=== PATIENT | female | born 1960 | race Caucasian/White ===

== ENCOUNTER 2020-11-20 08:05 | Inpatient (IN) ==
[2020-11-20 10:35] LABS: Bacteria,Urine Occasional /HPF (Few); Bilirubin,Urine Negative (Negative); Blood, Urine Negative (Negative); Glucose,Urine (UA) Negative (Negative); Ketones,Urine Negative (Negative); Mucus,Urine Occasional /LPF (Occasional); Nitrite,Urine Negative (Negative); Protein,Urine 30 MG/DL; RBC,Urine 1 /HPF (0-4); Squamous Epithelial Cell,Urine Few /HPF (0-10); Urine Appearance Slightly Hazy (Clear); Urine Color Amber (Yellow); Urine Urobilinogen < 2.0 EU/DL (0.2-1.0)
[2020-11-20 11:10] LABS: Albumin 3.4 G/DL (3.4-5.0); Bilirubin,Total 0.4 MG/DL (0.20-1.00); Calcium 9.3 MG/DL (8.5-10.1); Potassium 4.1 MMOL/L (3.5-5.1); Total Protein 7.8 G/DL (6.4-8.2)
[2020-11-20 11:14] LABS: Basophils % 0.3 % (0.0-0.8); Eosinophils # 0.1 10*3/uL (0.0-0.87); Eosinophils % 0.9 % (0.00-10.9); Hematocrit 31.2 VOL% (35.7-47.0); Hemoglobin 9.6 GM/DL (12.0-16.0); Immature Granulocytes % 0.7 %; Lymphocytes # 2.5 10*3/uL (1.4-4.0); Mean Corpuscular HGB Conc 30.8 GM/DL (32-36); Mean Corpuscular Volume 80.6 FL (87-102); Mean Platelet Volume 10.7 FL (9.6-12.0); Monocytes % 11.5 % (1.7-12.7); Neutrophils % 68.6 % (38.7-73.9); Red Blood Count 3.87 MC/CUMM (3.8-5.5); Red Cell Distribution Width 13.8 % (9.3-17.3)
[2020-11-20 11:16] LABS: Platelet Count 113 T/CUMM (130-400)
[2020-11-20] MEDS ORDERED: SODIUM CHLORIDE 0.9% 1,000 ML IV STA (12:53)
[2020-11-20] MEDS ORDERED: GLUCAGON 1 MG VIAL IM PRN ×2 (13:17→13:19)
[2020-11-20] MEDS ORDERED: DEXTROSE 50% 25 GM/50 ML VIAL IV PRN ×2 (13:17→13:19)
[2020-11-20] MEDS ORDERED: NICOTINE 21 MG/24 HR PATCH TRANSDERM PRN (13:19)
[2020-11-20] MEDS ORDERED: ONDANSETRON 4 MG/2 ML VIAL IV PRN (13:19)
[2020-11-20] MEDS ORDERED: BISACODYL 5 MG TABLET PO PRN (13:19)
[2020-11-20] MEDS: SODIUM CHLORIDE 0.9% 1,000 ML IV SCH (16:50)
[2020-11-20] MEDS: INSULIN LISPRO 100 UNIT/ML SUBCUT SCH ×2 (17:07→20:14)
[2020-11-20] MEDS: DOCUSATE SODIUM 100 MG CAPSULE PO SCH (20:12)
[2020-11-21] MEDS: SODIUM CHLORIDE 0.9% 1,000 ML IV SCH ×4 (00:33→20:03)
[2020-11-21 05:32] LABS: Basophils % 0.4 % (0.0-0.8); Eosinophils # 0.2 10*3/uL (0.0-0.87); Eosinophils % 2.8 % (0.00-10.9); Hematocrit 30.5 VOL% (35.7-47.0); Hemoglobin 9.4 GM/DL (12.0-16.0); Immature Granulocytes % 0.7 %; Immature Granulocytes Absolute 0.06 #; Lymphocytes # 1.8 10*3/uL (1.4-4.0); Lymphocytes % 21.6 % (21.3-54.2); Mean Corpuscular HGB Conc 30.8 GM/DL (32-36); Mean Platelet Volume 11.4 FL (9.6-12.0); Monocytes % 12.1 % (1.7-12.7); Neutrophils % 62.4 % (38.7-73.9); Platelet Count 107 T/CUMM (130-400); Red Blood Count 3.72 MC/CUMM (3.8-5.5); Red Cell Distribution Width 13.9 % (9.3-17.3); White Blood Count 8.3 T/CUMM (4-12)
[2020-11-21 05:57] LABS: Hypochromasia 1+; Microcytosis 1+; Platelet Estimate Decreased
[2020-11-21] MEDS: MORPHINE 2 MG/1 ML SYRINGE IV PRN (06:11)
[2020-11-21 06:14] LABS: Bilirubin,Total 0.6 MG/DL (0.20-1.00); Calcium 8.4 MG/DL (8.5-10.1); Osmolality,Calculated 278.8 MOS/KG (273-304); Potassium 4.2 MMOL/L (3.5-5.1); Risk Ratio 3.77; Thyroid Stimulating Hormone 1.47 uIU/ml (0.358-3.74); Total Protein 6.8 G/DL (6.4-8.2); VLDL Cholesterol 25.2 MG/DL
[2020-11-21] MEDS: INSULIN LISPRO 100 UNIT/ML SUBCUT SCH ×4 (09:14→21:16)
[2020-11-21] MEDS: DOCUSATE SODIUM 100 MG CAPSULE PO SCH ×2 (09:14→21:16)
[2020-11-21] MEDS: PANTOPRAZOLE 40 MG VIAL IV SCH (09:19)
[2020-11-22] MEDS: SODIUM CHLORIDE 0.9% 1,000 ML IV SCH (05:39)
[2020-11-22 05:58] LABS: Basophils % 0.3 % (0.0-0.8); Eosinophils # 0.3 10*3/uL (0.0-0.87); Eosinophils % 3.1 % (0.00-10.9); Hematocrit 28.6 VOL% (35.7-47.0); Immature Granulocytes % 0.8 %; Immature Granulocytes Absolute 0.07 #; Lymphocytes # 2.1 10*3/uL (1.4-4.0); Lymphocytes % 23.9 % (21.3-54.2); Mean Corpuscular HGB Conc 31.5 GM/DL (32-36); Mean Corpuscular Volume 80.1 FL (87-102); Mean Platelet Volume 11.5 FL (9.6-12.0); Neutrophils % 58.9 % (38.7-73.9); Platelet Count 98 T/CUMM (130-400); Red Blood Count 3.57 MC/CUMM (3.8-5.5); Red Cell Distribution Width 13.6 % (9.3-17.3); White Blood Count 8.8 T/CUMM (4-12)
[2020-11-22 06:57] LABS: Bilirubin,Total 0.6 MG/DL (0.20-1.00); Calcium 8.5 MG/DL (8.5-10.1); Osmolality,Calculated 273.8 MOS/KG (273-304); Potassium 4.3 MMOL/L (3.5-5.1); Total Protein 6.8 G/DL (6.4-8.2)
[2020-11-22] MEDS: INSULIN LISPRO 100 UNIT/ML SUBCUT SCH ×4 (07:29→22:05)
[2020-11-22] MEDS ORDERED: LACTATED RINGERS 1,000 ML IV SCH (08:00)
[2020-11-22] MEDS: PANTOPRAZOLE 40 MG VIAL IV SCH (08:47)
[2020-11-22] MEDS: MORPHINE 2 MG/1 ML SYRINGE IV PRN (09:08)
[2020-11-22] MEDS: DOCUSATE SODIUM 100 MG CAPSULE PO SCH ×2 (09:53→22:03)
[2020-11-22] MEDS ORDERED: LIDOCAINE 100 MG/5 ML SYRINGE ONE (11:56)
[2020-11-22] MEDS ORDERED: ETOMIDATE 20 MG/10 ML VIAL IV ONE (11:56)
[2020-11-22] MEDS ORDERED: propofoL 200 MG/20 ML VIAL IV ONE (11:56)
[2020-11-22] MEDS ORDERED: METOPROLOL TARTRATE 5 MG/5 ML VIAL IV ONE (12:05)
[2020-11-22] MEDS ORDERED: ESMOLOL 100 MG/10 ML VIAL IV ONE (12:05)
[2020-11-22] MEDS: amLODIPine 10 MG TABLET PO SCH (14:29)
[2020-11-22] MEDS: METOPROLOL SUCCINATE XL 50 MG TABLET PO SCH ×2 (14:29→22:04)
[2020-11-22] MEDS: GABAPENTIN 300 MG CAPSULE PO SCH ×2 (14:29→22:03)
[2020-11-23 05:43] LABS: Basophils % 0.4 % (0.0-0.8); Eosinophils # 0.3 10*3/uL (0.0-0.87); Eosinophils % 3.2 % (0.00-10.9); Hematocrit 29.1 VOL% (35.7-47.0); Hemoglobin 9.2 GM/DL (12.0-16.0); Immature Granulocytes % 0.6 %; Immature Granulocytes Absolute 0.05 #; Lymphocytes % 25.2 % (21.3-54.2); Mean Corpuscular HGB Conc 31.6 GM/DL (32-36); Mean Corpuscular Volume 79.1 FL (87-102); Mean Platelet Volume 10.7 FL (9.6-12.0); Neutrophils % 57.6 % (38.7-73.9); Platelet Count 75 T/CUMM (130-400); Red Blood Count 3.68 MC/CUMM (3.8-5.5); Red Cell Distribution Width 13.4 % (9.3-17.3); White Blood Count 7.8 T/CUMM (4-12)
[2020-11-23 06:09] LABS: Bilirubin,Total 0.9 MG/DL (0.20-1.00); Calcium 8.8 MG/DL (8.5-10.1); Potassium 4.1 MMOL/L (3.5-5.1); Total Protein 6.9 G/DL (6.4-8.2)
[2020-11-23 06:31] LABS: Hypochromasia 1+
[2020-11-23 06:32] LABS: Microcytosis 1+; Platelet Estimate Decreased
[2020-11-23] MEDS: INSULIN LISPRO 100 UNIT/ML SUBCUT SCH ×4 (07:59→21:55)
[2020-11-23] MEDS: GABAPENTIN 300 MG CAPSULE PO SCH ×3 (09:39→21:51)
[2020-11-23] MEDS: DOCUSATE SODIUM 100 MG CAPSULE PO SCH ×2 (09:39→21:51)
[2020-11-23] MEDS: METOPROLOL SUCCINATE XL 50 MG TABLET PO SCH ×2 (09:39→21:51)
[2020-11-23] MEDS: amLODIPine 10 MG TABLET PO SCH (09:39)
[2020-11-23] MEDS: PANTOPRAZOLE 40 MG VIAL IV SCH (09:44)
[2020-11-24] MEDS: METOPROLOL SUCCINATE XL 50 MG TABLET PO SCH ×2 (09:00→21:06)
[2020-11-24] MEDS: INSULIN LISPRO 100 UNIT/ML SUBCUT SCH ×4 (09:00→21:06)
[2020-11-24] MEDS: GABAPENTIN 300 MG CAPSULE PO SCH ×3 (09:00→21:06)
[2020-11-24] MEDS: lisinopriL 20 MG TABLET PO SCH (09:00)
[2020-11-24] MEDS: amLODIPine 10 MG TABLET PO SCH (09:00)
[2020-11-24] MEDS: DOCUSATE SODIUM 100 MG CAPSULE PO SCH ×2 (09:43→21:06)
[2020-11-24] MEDS: PANTOPRAZOLE 40 MG VIAL IV SCH (15:02)
[2020-11-24] MEDS ORDERED: DEXTROSE 50% 25 GM/50 ML VIAL IV PRN (15:59)
[2020-11-24] MEDS ORDERED: GLUCAGON 1 MG VIAL IM PRN (15:59)
[2020-11-25 05:23] LABS: Basophils # 0.1 10*3/uL (0.0-0.2); Basophils % 0.5 % (0.0-0.8); Eosinophils # 0.3 10*3/uL (0.0-0.87); Eosinophils % 2.8 % (0.00-10.9); Hematocrit 27.5 VOL% (35.7-47.0); Hemoglobin 8.4 GM/DL (12.0-16.0); Immature Granulocytes % 2.1 %; Immature Granulocytes Absolute 0.21 #; Lymphocytes # 2.6 10*3/uL (1.4-4.0); Lymphocytes % 26.8 % (21.3-54.2); Mean Corpuscular HGB Conc 30.5 GM/DL (32-36); Mean Corpuscular Volume 82.1 FL (87-102); Mean Platelet Volume 11.6 FL (9.6-12.0); NRBC # 0.03 10*3/uL; Neutrophils % 57.8 % (38.7-73.9); Red Blood Count 3.35 MC/CUMM (3.8-5.5); Red Cell Distribution Width 13.7 % (9.3-17.3); White Blood Count 9.8 T/CUMM (4-12)
[2020-11-25 05:32] LABS: Calcium 8.7 MG/DL (8.5-10.1); Osmolality,Calculated 278.7 MOS/KG (273-304); Potassium 4.6 MMOL/L (3.5-5.1)
[2020-11-25 05:41] LABS: Platelet Count 89 T/CUMM (130-400)
[2020-11-25 05:43] LABS: Band Neutrophils 2 % (0-10); Eosinophils 2 % (0-10); Hypochromasia 1+; Lymphocytes 20 % (20-55); Segmented Neutrophils 65 % (50-85); Total Cells Counted 100
[2020-11-25 05:44] LABS: Microcytosis 1+; Platelet Estimate Decreased
[2020-11-25 08:31] LABS: INR 1.4; PT Patient Result 15.7 SECS (10.5-12.0)
[2020-11-25] MEDS: lisinopriL 20 MG TABLET PO SCH (09:18)
[2020-11-25] MEDS: GABAPENTIN 300 MG CAPSULE PO SCH ×3 (09:18→21:12)
[2020-11-25] MEDS: METOPROLOL SUCCINATE XL 50 MG TABLET PO SCH ×2 (09:18→21:12)
[2020-11-25] MEDS: DOCUSATE SODIUM 100 MG CAPSULE PO SCH ×2 (09:18→21:12)
[2020-11-25] MEDS: amLODIPine 10 MG TABLET PO SCH (09:18)
[2020-11-25] MEDS: PANTOPRAZOLE 40 MG VIAL IV SCH (09:19)
[2020-11-25] MEDS: INSULIN LISPRO 100 UNIT/ML SUBCUT SCH ×4 (09:19→21:12)
[2020-11-25] MEDS ORDERED: DIAZEPAM 5 MG TABLET PO ONE (13:40)
[2020-11-25] MEDS ORDERED: DEXTROSE 50% 25 GM/50 ML VIAL IV PRN (15:49)
[2020-11-26 05:03] LABS: Basophils % 0.5 % (0.0-0.8); Eosinophils # 0.3 10*3/uL (0.0-0.87); Hematocrit 26.6 VOL% (35.7-47.0); Hemoglobin 8.3 GM/DL (12.0-16.0); Immature Granulocytes % 3.2 %; Immature Granulocytes Absolute 0.28 #; Lymphocytes # 2.7 10*3/uL (1.4-4.0); Mean Corpuscular HGB Conc 31.2 GM/DL (32-36); Mean Corpuscular Volume 81.1 FL (87-102); Mean Platelet Volume 11.4 FL (9.6-12.0); Monocytes % 10.7 % (1.7-12.7); NRBC # 0.03 10*3/uL; Neutrophils % 51.6 % (38.7-73.9); Platelet Count 85 T/CUMM (130-400); Red Blood Count 3.28 MC/CUMM (3.8-5.5); Red Cell Distribution Width 13.8 % (9.3-17.3); White Blood Count 8.8 T/CUMM (4-12)
[2020-11-26 05:24] LABS: Calcium 8.6 MG/DL (8.5-10.1); Osmolality,Calculated 284.8 MOS/KG (273-304); Potassium 5.2 MMOL/L (3.5-5.1)
[2020-11-26] MEDS: lisinopriL 20 MG TABLET PO SCH (09:33)
[2020-11-26] MEDS: GABAPENTIN 300 MG CAPSULE PO SCH ×3 (09:35→21:28)
[2020-11-26] MEDS: INSULIN LISPRO 100 UNIT/ML SUBCUT SCH ×4 (09:37→21:29)
[2020-11-26] MEDS: PANTOPRAZOLE 40 MG VIAL IV SCH (09:38)
[2020-11-26] MEDS: DOCUSATE SODIUM 100 MG CAPSULE PO SCH ×2 (09:38→21:28)
[2020-11-26] MEDS: amLODIPine 10 MG TABLET PO SCH (09:38)
[2020-11-26] MEDS: METOPROLOL SUCCINATE XL 50 MG TABLET PO SCH ×2 (09:40→21:28)
[2020-11-26] MEDS: ACETAMINOPHEN 325 MG TABLET PO PRN (12:33)
[2020-11-27 02:14] LABS: Basophils # 0.1 10*3/uL (0.0-0.2); Basophils % 0.5 % (0.0-0.8); Eosinophils # 0.3 10*3/uL (0.0-0.87); Eosinophils % 2.9 % (0.00-10.9); Hematocrit 26.7 VOL% (35.7-47.0); Hemoglobin 8.1 GM/DL (12.0-16.0); Immature Granulocytes % 3.1 %; Immature Granulocytes Absolute 0.29 #; Lymphocytes # 2.9 10*3/uL (1.4-4.0); Lymphocytes % 30.5 % (21.3-54.2); Mean Corpuscular HGB Conc 30.3 GM/DL (32-36); Mean Corpuscular Volume 82.2 FL (87-102); Mean Platelet Volume 12.1 FL (9.6-12.0); Monocytes % 9.8 % (1.7-12.7); NRBC # 0.05 10*3/uL; Neutrophils % 53.2 % (38.7-73.9); Platelet Count 91 T/CUMM (130-400); Red Blood Count 3.25 MC/CUMM (3.8-5.5); Red Cell Distribution Width 13.7 % (9.3-17.3); White Blood Count 9.4 T/CUMM (4-12)
[2020-11-27 02:29] LABS: Calcium 8.6 MG/DL (8.5-10.1); Osmolality,Calculated 281.4 MOS/KG (273-304); Potassium 4.6 MMOL/L (3.5-5.1)
[2020-11-27 03:58] LABS: Band Neutrophils 1 % (0-10); Eosinophils 1 % (0-10); Lymphocytes 36 % (20-55); Metamyelocytes 1 %; Nucleated Red Blood Cells 1 (0-5); Segmented Neutrophils 52 % (50-85); Total Cells Counted 100
[2020-11-27 03:59] LABS: Hypochromasia 1+; Platelet Estimate Decreased
[2020-11-27] MEDS ORDERED: MAGNESIUM SULF RIDER 2 GM/50 ML PREMIX IV ONE (08:43)
[2020-11-27] MEDS: lisinopriL 20 MG TABLET PO SCH (08:43)
[2020-11-27] MEDS: INSULIN LISPRO 100 UNIT/ML SUBCUT SCH ×4 (08:43→20:47)
[2020-11-27] MEDS: GABAPENTIN 300 MG CAPSULE PO SCH ×3 (08:44→20:46)
[2020-11-27] MEDS: amLODIPine 10 MG TABLET PO SCH (08:44)
[2020-11-27] MEDS: DOCUSATE SODIUM 100 MG CAPSULE PO SCH ×2 (08:44→20:46)
[2020-11-27] MEDS: METOPROLOL SUCCINATE XL 50 MG TABLET PO SCH ×2 (08:44→20:45)
[2020-11-27] MEDS: PANTOPRAZOLE 40 MG VIAL IV SCH (08:48)
[2020-11-27 10:26] LABS: Cancer Antigen 19-9 4.61 U/ML (0-35); Carcinoembryonic Antigen 1.4 NG/ML (0.0-5.0)
[2020-11-27 14:14] LABS: Folate 10.53 NG/ML (5.38-24.0)
[2020-11-27 14:15] LABS: Albumin 2.9 G/DL (3.4-5.0); Bilirubin,Direct 0.1 MG/DL (0.0-0.20); Bilirubin,Indirect 0.7 MG/DL (0.0-1.0); Bilirubin,Total 0.8 MG/DL (0.20-1.00); Total Protein 6.7 G/DL (6.4-8.2)
[2020-11-27 14:26] LABS: % Iron Saturation 6.6 % (18-50)
[2020-11-28 06:23] LABS: Basophils # 0.1 10*3/uL (0.0-0.2); Basophils % 0.6 % (0.0-0.8); Eosinophils # 0.3 10*3/uL (0.0-0.87); Hematocrit 25.4 VOL% (35.7-47.0); Hemoglobin 7.9 GM/DL (12.0-16.0); Immature Granulocytes % 5.9 %; Immature Granulocytes Absolute 0.57 #; Lymphocytes # 2.8 10*3/uL (1.4-4.0); Lymphocytes % 29.3 % (21.3-54.2); Mean Corpuscular HGB Conc 31.1 GM/DL (32-36); Mean Corpuscular Volume 81.2 FL (87-102); Mean Platelet Volume 11.7 FL (9.6-12.0); Monocytes % 9.1 % (1.7-12.7); NRBC # 0.13 10*3/uL; Neutrophils % 52.1 % (38.7-73.9); Platelet Count 95 T/CUMM (130-400); Red Blood Count 3.13 MC/CUMM (3.8-5.5); Red Cell Distribution Width 14.1 % (9.3-17.3); White Blood Count 9.6 T/CUMM (4-12)
[2020-11-28 06:41] LABS: Bilirubin,Total 0.7 MG/DL (0.20-1.00); Calcium 8.6 MG/DL (8.5-10.1); Osmolality,Calculated 286.4 MOS/KG (273-304); Potassium 4.6 MMOL/L (3.5-5.1); Total Protein 6.7 G/DL (6.4-8.2)
[2020-11-28 06:46] LABS: Atypical Lymphocytes Few; Eosinophils 3 % (0-10); Hypochromasia 1+; Lymphocytes 26 % (20-55); Microcytosis 1+; Nucleated Red Blood Cells 1 (0-5); Platelet Estimate Decreased; Segmented Neutrophils 66 % (50-85); Total Cells Counted 100
[2020-11-28] MEDS: ACETAMINOPHEN 325 MG TABLET PO PRN ×2 (07:06→20:20)
[2020-11-28] MEDS: DOCUSATE SODIUM 100 MG CAPSULE PO SCH ×2 (09:05→20:17)
[2020-11-28] MEDS: METOPROLOL SUCCINATE XL 50 MG TABLET PO SCH ×2 (09:05→20:17)
[2020-11-28] MEDS: lisinopriL 20 MG TABLET PO SCH (09:05)
[2020-11-28] MEDS: INSULIN LISPRO 100 UNIT/ML SUBCUT SCH ×4 (09:06→20:18)
[2020-11-28] MEDS: GABAPENTIN 300 MG CAPSULE PO SCH ×3 (09:06→20:17)
[2020-11-28] MEDS: amLODIPine 10 MG TABLET PO SCH (09:06)
[2020-11-28] MEDS: PANTOPRAZOLE 40 MG VIAL IV SCH (09:08)
[2020-11-28 09:51] LABS: Alanine Aminotransferase 81 U/L (13-56); Alkaline Phosphatase 354 U/L (45-117); Aspartate Amino Transferase 67 U/L (0-37); Bilirubin,Indirect 0.3 MG/DL (0.0-1.0); Bilirubin,Total < 0.39 MG/DL (0.20-1.00); Total Protein 6.7 G/DL (6.4-8.2)
[2020-11-28 13:56] LABS: Antinuclear Ab, S 0.2 U
[2020-11-28] MEDS: FERROUS SULFATE 325 MG TABLET PO SCH (17:31)
[2020-11-28] MEDS: glyBURIDE/METFORMIN 5-500 MG TABLET PO SCH (17:32)
[2020-11-29 06:12] LABS: Basophils % 0.4 % (0.0-0.8); Eosinophils # 0.3 10*3/uL (0.0-0.87); Eosinophils % 2.8 % (0.00-10.9); Hematocrit 26.9 VOL% (35.7-47.0); Hemoglobin 8.2 GM/DL (12.0-16.0); Immature Granulocytes % 5.9 %; Immature Granulocytes Absolute 0.54 #; Lymphocytes # 2.6 10*3/uL (1.4-4.0); Lymphocytes % 28.4 % (21.3-54.2); Mean Corpuscular HGB Conc 30.5 GM/DL (32-36); Mean Corpuscular Volume 82.3 FL (87-102); Mean Platelet Volume 10.9 FL (9.6-12.0); Monocytes % 8.1 % (1.7-12.7); NRBC # 0.16 10*3/uL; Neutrophils % 54.4 % (38.7-73.9); Platelet Count 120 T/CUMM (130-400); Red Blood Count 3.27 MC/CUMM (3.8-5.5); Red Cell Distribution Width 14.1 % (9.3-17.3); White Blood Count 9.2 T/CUMM (4-12)
[2020-11-29 06:37] LABS: Calcium 9.2 MG/DL (8.5-10.1); Osmolality,Calculated 282.3 MOS/KG (273-304); Potassium 4.3 MMOL/L (3.5-5.1)
[2020-11-29 06:53] LABS: Band Neutrophils 1 % (0-10); Eosinophils 3 % (0-10); Lymphocytes 21 % (20-55); Nucleated Red Blood Cells 2 (0-5); Segmented Neutrophils 66 % (50-85); Total Cells Counted 100
[2020-11-29 06:54] LABS: Atypical Lymphocytes Few; Hypochromasia 1+; Microcytosis 1+; Platelet Estimate Normal
[2020-11-29] MEDS: INSULIN LISPRO 100 UNIT/ML SUBCUT SCH ×3 (09:35→16:46)
[2020-11-29] MEDS: FERROUS SULFATE 325 MG TABLET PO SCH (09:36)
[2020-11-29] MEDS: DOCUSATE SODIUM 100 MG CAPSULE PO SCH (09:36)
[2020-11-29] MEDS: lisinopriL 20 MG TABLET PO SCH (09:36)
[2020-11-29] MEDS: METOPROLOL SUCCINATE XL 50 MG TABLET PO SCH (09:37)
[2020-11-29] MEDS: GABAPENTIN 300 MG CAPSULE PO SCH ×2 (09:37→15:22)
[2020-11-29] MEDS: glyBURIDE/METFORMIN 5-500 MG TABLET PO SCH (09:37)
[2020-11-29] MEDS: amLODIPine 10 MG TABLET PO SCH (09:37)
[2020-11-29] MEDS: PANTOPRAZOLE 40 MG VIAL IV SCH (09:42)
[2020-11-29 11:53] VITALS: BP 150/66
[2020-11-29 13:31] LABS: Smooth Muscle Antibody Positive (Negative)
[2020-11-29 15:00] LABS: Alanine Aminotransferase 79 U/L (13-56); Albumin 3.2 G/DL (3.4-5.0); Alkaline Phosphatase 342 U/L (45-117); Aspartate Amino Transferase 56 U/L (0-37); Bilirubin,Indirect 0.3 MG/DL (0.0-1.0); Bilirubin,Total < 0.39 MG/DL (0.20-1.00); Total Protein 6.8 G/DL (6.4-8.2)
== END 2020-11-29 16:55 | disposition home or self-care (01) | DRG 240 ==
LOC: N.ED 08:05 → SUATTDRO 13:19 → N.EDINP 13:19 → N.5E 19:08
PROVIDERS: ADMIT Internal Medicine; ATTEND Internal Medicine

== ENCOUNTER 2021-03-17 18:32 | Inpatient (IN) ==
[2021-03-17] MEDS ORDERED: DEXTROSE 50% 25 GM/50 ML SYRINGE IV ONE (19:03)
[2021-03-17] MEDS ORDERED: ONDANSETRON 4 MG/2 ML VIAL IV STA (19:05)
[2021-03-17] MEDS ORDERED: DEXTROSE 50% 25 GM/50 ML SYRINGE IV STA (19:05)
[2021-03-17] MEDS ORDERED: SODIUM CHLORIDE 0.9% 500 ML IV STA (19:05)
[2021-03-17] MEDS ORDERED: ONDANSETRON 4 MG/2 ML VIAL ONE (19:06)
[2021-03-17 19:55] LABS: Basophils # 0.1 10*3/uL (0.0-0.2); Basophils % 0.3 % (0.0-0.8); Eosinophils % 0.1 % (0.00-10.9); Hematocrit 20.4 VOL% (35.7-47.0); Immature Granulocytes % 1.7 %; Immature Granulocytes Absolute 0.36 #; Lymphocytes # 1.7 10*3/uL (1.4-4.0); Lymphocytes % 7.8 % (21.3-54.2); Mean Corpuscular HGB Conc 29.4 GM/DL (32-36); Monocytes % 10.4 % (1.7-12.7); NRBC # 0.02 10*3/uL; Neutrophils % 79.7 % (38.7-73.9); Platelet Count 438 T/CUMM (130-400); Red Blood Count 2.55 MC/CUMM (3.8-5.5); Red Cell Distribution Width 23.3 % (9.3-17.3); White Blood Count 21.4 T/CUMM (4-12)
[2021-03-17 20:06] LABS: INR 1.3
[2021-03-17 20:12] LABS: Alanine Aminotransferase 42 U/L (13-56); Alkaline Phosphatase 815 U/L (45-117); Aspartate Amino Transferase 223 U/L (0-37); Blood Urea Nitrogen 38 MG/DL (7-18); Calcium 7.9 MG/DL (8.5-10.1); Carbon Dioxide 21 MMOL/L (21-32); Estimated Glom Filtration Rate 28 ML/MIN; Glucose 140 MG/DL (74-106); Osmolality,Calculated 278.2 MOS/KG (273-304); Potassium 4.2 MMOL/L (3.5-5.1); Sodium 134 MMOL/L (136-145); Total Protein 7.8 G/DL (6.4-8.2)
[2021-03-17 20:22] LABS: Eosinophils 1 % (0-10); Lymphocytes 9 % (20-55); Segmented Neutrophils 83 % (50-85); Total Cells Counted 100
[2021-03-17 20:23] LABS: Anisocytosis 2+; Hypochromasia 1+; Macrocytosis Slight; Microcytosis 2+; Platelet Estimate Normal; Poikilocytosis Few; Polychromasia 1+; Schistocytes Few
[2021-03-17 20:24] LABS: Target Cells Slight
[2021-03-17] MEDS ORDERED: SODIUM CHLORIDE 0.9% 1,000 ML IV PRN (21:00)
[2021-03-17] MEDS ORDERED: DEXTROSE 50% 25 GM/50 ML VIAL IV STA (22:20)
[2021-03-17] MEDS ORDERED: GLUCAGON 1 MG VIAL IM PRN (22:51)
[2021-03-17] MEDS ORDERED: ONDANSETRON 4 MG/2 ML VIAL IV PRN (22:51)
[2021-03-17] MEDS ORDERED: ALUMINUM/MAGNES/SIMETH MAX STR 30 ML UDCUP PO PRN (22:51)
[2021-03-17] MEDS ORDERED: POTASSIUM CHLORIDE RIDER 10 MEQ/100 ML PREMIX IV PRN (22:51)
[2021-03-17] MEDS ORDERED: ACETAMINOPHEN 325 MG TABLET PO PRN (22:51)
[2021-03-17] MEDS ORDERED: POTASSIUM CHLORIDE 20 MEQ TABLET PO PRN (22:51)
[2021-03-17] MEDS ORDERED: MAGNESIUM SULF RIDER 4 GM/100 ML PREMIX IV PRN (22:51)
[2021-03-17] MEDS ORDERED: DEXTROSE 5% NACL 0.45% 1,000 ML IV SCH (23:00)
[2021-03-18] MEDS: DEXTROSE 50% 25 GM/50 ML VIAL IV PRN ×3 (01:15→06:53)
[2021-03-18] MEDS: cefTRIAXone 1,000 MG in SODIUM CHLORIDE 0.9% 100 ML IV SCH (01:35)
[2021-03-18] MEDS ORDERED: DEXTROSE 10% 1,000 ML IV SCH (02:00)
[2021-03-18 04:34] LABS: Amorphous Crystals,Urine Few /HPF (Few); Bilirubin,Urine Negative (Negative); Blood, Urine Negative (Negative); Glucose,Urine (UA) Negative (Negative); Ketones,Urine Negative (Negative); Nitrite,Urine Negative (Negative); Protein,Urine 30 MG/DL; RBC,Urine 1 /HPF (0-4); Squamous Epithelial Cell,Urine Occasional /HPF (0-10); Urine Appearance CLEAR (Clear); Urine Color Yellow (Yellow); Urine Specific Gravity 1.013 (1.001-1.035); Urine Urobilinogen < 2.0 EU/DL (0.2-1.0)
[2021-03-18 04:39] LABS: Barbiturates Screen,Urine Negative (Negative); Benzodiazepines Screen,Urine Negative (Negative); Cannabinoid Screen,Urine Negative (Negative); Opiate Screen,Urine Negative (Negative); Phencyclidine Screen,Urine Negative (Negative)
[2021-03-18] MEDS: HYDROCORTISONE 100 MG VIAL IV SCH ×3 (05:20→18:23)
[2021-03-18 08:02] LABS: Basophils # 0.1 10*3/uL (0.0-0.2); Basophils % 0.3 % (0.0-0.8); Eosinophils % 0.2 % (0.00-10.9); Hematocrit 27.1 VOL% (35.7-47.0); Hemoglobin 8.5 GM/DL (12.0-16.0); Immature Granulocytes % 1.6 %; Lymphocytes # 1.4 10*3/uL (1.4-4.0); Lymphocytes % 5.4 % (21.3-54.2); Mean Corpuscular HGB Conc 31.4 GM/DL (32-36); Mean Corpuscular Volume 81.1 FL (87-102); Mean Platelet Volume 10.5 FL (9.6-12.0); Monocytes % 7.1 % (1.7-12.7); NRBC # 0.03 10*3/uL; Neutrophils % 85.4 % (38.7-73.9); Platelet Count 401 T/CUMM (130-400); Red Blood Count 3.34 MC/CUMM (3.8-5.5); Red Cell Distribution Width 19.9 % (9.3-17.3); White Blood Count 25.2 T/CUMM (4-12)
[2021-03-18] MEDS ORDERED: fentaNYL 25 MCG/HR PATCH TRANSDERM PRN (08:16)
[2021-03-18 08:20] LABS: Hypochromasia 1+; Lymphocytes 4 % (20-55); Microcytosis 1+; Platelet Estimate Adequate; Segmented Neutrophils 92 % (50-85); Total Cells Counted 100
[2021-03-18 08:30] LABS: % Iron Saturation 15.7 % (18-50); Ferritin 1424.5 ng/mL (8-252)
[2021-03-18] MEDS: PANTOPRAZOLE 40 MG TABLET PO SCH (10:12)
[2021-03-18] MEDS: DOCUSATE SODIUM 100 MG CAPSULE PO SCH ×2 (10:12→21:31)
[2021-03-18] MEDS: hydrALAZINE 20 MG/1 ML VIAL IV PRN ×2 (10:13→16:00)
[2021-03-18] MEDS: DEXTROSE 5% NACL 0.9% 1,000 ML IV SCH ×2 (10:15→17:17)
[2021-03-18] MEDS: MAGNESIUM SULF RIDER 2 GM/50 ML PREMIX IV PRN (10:32)
[2021-03-18 11:09] LABS: Folate 5.69 NG/ML (5.38-24.0)
[2021-03-18 13:41] LABS: Albumin 2.9 G/DL (3.4-5.0); Bilirubin,Total 0.7 MG/DL (0.20-1.00); Osmolality,Calculated 267.7 MOS/KG (273-304); Total Protein 8.2 G/DL (6.4-8.2)
[2021-03-18] MEDS: amLODIPine 10 MG TABLET PO SCH (14:08)
[2021-03-18 15:50] LABS: Calcium 7.5 MG/DL (8.5-10.1); Osmolality,Calculated 271.1 MOS/KG (273-304); Potassium 4.4 MMOL/L (3.5-5.1)
[2021-03-18] MEDS ORDERED: MORPHINE 2 MG/1 ML SYRINGE IV ONE (17:04)
[2021-03-18] MEDS ORDERED: SODIUM CHLORIDE 0.9% 1,000 ML IV SCH (17:30)
[2021-03-18] MEDS: SODIUM CHLORIDE 0.9% 1,000 ML IV SCH (18:00)
[2021-03-18] MEDS: MORPHINE 2 MG/1 ML SYRINGE IV PRN (21:31)
[2021-03-19] MEDS: hydrALAZINE 20 MG/1 ML VIAL IV PRN (01:11)
[2021-03-19] MEDS: cefTRIAXone 1,000 MG in SODIUM CHLORIDE 0.9% 100 ML IV SCH (01:12)
[2021-03-19] MEDS: SODIUM CHLORIDE 0.9% 1,000 ML IV SCH ×2 (01:12→10:50)
[2021-03-19] MEDS: HYDROCORTISONE 100 MG VIAL IV SCH ×3 (01:13→17:07)
[2021-03-19 05:38] LABS: Basophils % 0.2 % (0.0-0.8); Hematocrit 22.8 VOL% (35.7-47.0); Hemoglobin 7.1 GM/DL (12.0-16.0); Immature Granulocytes % 3.1 %; Immature Granulocytes Absolute 0.56 #; Lymphocytes # 1.1 10*3/uL (1.4-4.0); Lymphocytes % 6.1 % (21.3-54.2); Mean Corpuscular HGB Conc 31.1 GM/DL (32-36); Mean Corpuscular Volume 81.1 FL (87-102); Mean Platelet Volume 10.3 FL (9.6-12.0); Monocytes % 6.7 % (1.7-12.7); NRBC # 0.02 10*3/uL; Neutrophils % 83.9 % (38.7-73.9); Platelet Count 403 T/CUMM (130-400); Red Blood Count 2.81 MC/CUMM (3.8-5.5); Red Cell Distribution Width 20.2 % (9.3-17.3); White Blood Count 17.8 T/CUMM (4-12)
[2021-03-19 06:06] LABS: Albumin 2.4 G/DL (3.4-5.0); Bilirubin,Total 0.8 MG/DL (0.20-1.00); Calcium 7.5 MG/DL (8.5-10.1); Osmolality,Calculated 279.5 MOS/KG (273-304); Potassium 4.8 MMOL/L (3.5-5.1)
[2021-03-19 06:16] LABS: Hypochromasia 1+; Lymphocytes 5 % (20-55); Microcytosis 1+; Platelet Estimate Adequate; Segmented Neutrophils 87 % (50-85); Total Cells Counted 100
[2021-03-19] MEDS: DOCUSATE SODIUM 100 MG CAPSULE PO SCH ×2 (08:50→20:15)
[2021-03-19] MEDS: amLODIPine 10 MG TABLET PO SCH (08:51)
[2021-03-19] MEDS: PANTOPRAZOLE 40 MG TABLET PO SCH (08:51)
[2021-03-19] MEDS ORDERED: SODIUM CHLORIDE 0.9% 1,000 ML IV PRN (08:52)
[2021-03-19] MEDS: INSULIN LISPRO 100 UNIT/ML SUBCUT SCH ×2 (17:07→21:13)
[2021-03-19] MEDS: METOPROLOL TARTRATE 25 MG TABLET PO SCH (20:15)
[2021-03-19] MEDS: MORPHINE 2 MG/1 ML SYRINGE IV PRN (20:52)
[2021-03-20] MEDS: HYDROCORTISONE 100 MG VIAL IV SCH ×3 (00:09→16:39)
[2021-03-20] MEDS: cefTRIAXone 1,000 MG in SODIUM CHLORIDE 0.9% 100 ML IV SCH (00:12)
[2021-03-20] MEDS: SODIUM CHLORIDE 0.9% 1,000 ML IV SCH ×3 (01:41→10:51)
[2021-03-20 04:59] LABS: Basophils % 0.2 % (0.0-0.8); Eosinophils % 0.1 % (0.00-10.9); Hematocrit 30.2 VOL% (35.7-47.0); Hemoglobin 9.3 GM/DL (12.0-16.0); Immature Granulocytes Absolute 0.54 #; Lymphocytes # 1.2 10*3/uL (1.4-4.0); Lymphocytes % 6.6 % (21.3-54.2); Mean Corpuscular HGB Conc 30.8 GM/DL (32-36); Mean Corpuscular Volume 84.6 FL (87-102); Mean Platelet Volume 10.4 FL (9.6-12.0); Monocytes % 9.2 % (1.7-12.7); Neutrophils % 80.9 % (38.7-73.9); Platelet Count 349 T/CUMM (130-400); Red Blood Count 3.57 MC/CUMM (3.8-5.5); Red Cell Distribution Width 19.4 % (9.3-17.3); White Blood Count 17.7 T/CUMM (4-12)
[2021-03-20 05:21] LABS: Hypochromasia 1+; Lymphocytes 6 % (20-55); Microcytosis 1+; Platelet Estimate Adequate; Segmented Neutrophils 87 % (50-85); Total Cells Counted 100
[2021-03-20 05:22] LABS: Calcium 7.6 MG/DL (8.5-10.1); Osmolality,Calculated 276.2 MOS/KG (273-304); Potassium 5.6 MMOL/L (3.5-5.1)
[2021-03-20] MEDS ORDERED: SODIUM POLYSTYRENE SULFATE 15 GM/60 ML BOTTLE PO ONE (06:00)
[2021-03-20] MEDS: DOCUSATE SODIUM 100 MG CAPSULE PO SCH ×2 (10:22→21:20)
[2021-03-20] MEDS: METOPROLOL TARTRATE 25 MG TABLET PO SCH ×2 (10:22→21:20)
[2021-03-20] MEDS: amLODIPine 10 MG TABLET PO SCH (10:22)
[2021-03-20] MEDS: PANTOPRAZOLE 40 MG TABLET PO SCH (10:22)
[2021-03-20] MEDS: INSULIN LISPRO 100 UNIT/ML SUBCUT SCH ×4 (10:23→21:47)
[2021-03-20] MEDS: MAGNESIUM SULF RIDER 2 GM/50 ML PREMIX IV PRN (10:28)
[2021-03-20] MEDS: MORPHINE 2 MG/1 ML SYRINGE IV PRN (17:59)
[2021-03-21] MEDS: HYDROCORTISONE 100 MG VIAL IV SCH (01:31)
[2021-03-21] MEDS: cefTRIAXone 1,000 MG in SODIUM CHLORIDE 0.9% 100 ML IV SCH (01:31)
[2021-03-21] MEDS: SODIUM CHLORIDE 0.9% 1,000 ML IV SCH ×4 (01:31→17:22)
[2021-03-21 04:31] LABS: Basophils # 0.1 10*3/uL (0.0-0.2); Basophils % 0.2 % (0.0-0.8); Eosinophils # 0.1 10*3/uL (0.0-0.87); Eosinophils % 0.4 % (0.00-10.9); Hematocrit 31.5 VOL% (35.7-47.0); Hemoglobin 9.8 GM/DL (12.0-16.0); Immature Granulocytes % 3.5 %; Immature Granulocytes Absolute 0.83 #; Lymphocytes # 1.8 10*3/uL (1.4-4.0); Lymphocytes % 7.4 % (21.3-54.2); Mean Corpuscular HGB Conc 31.1 GM/DL (32-36); Mean Platelet Volume 9.4 FL (9.6-12.0); Monocytes % 13.5 % (1.7-12.7); Platelet Count 398 T/CUMM (130-400); Red Blood Count 3.75 MC/CUMM (3.8-5.5); Red Cell Distribution Width 19.3 % (9.3-17.3)
[2021-03-21 04:58] LABS: Albumin 2.6 G/DL (3.4-5.0); Bilirubin,Total 0.8 MG/DL (0.20-1.00); Calcium 8.1 MG/DL (8.5-10.1); Osmolality,Calculated 274.7 MOS/KG (273-304); Potassium 3.8 MMOL/L (3.5-5.1); Total Protein 7.1 G/DL (6.4-8.2)
[2021-03-21] MEDS: MORPHINE 2 MG/1 ML SYRINGE IV PRN ×2 (05:05→20:37)
[2021-03-21 05:09] LABS: Band Neutrophils 1 % (0-10); Hypochromasia Slight; Lymphocytes 6 % (20-55); Platelet Estimate Normal; Segmented Neutrophils 89 % (50-85); Total Cells Counted 100
[2021-03-21] MEDS: MAGNESIUM SULF RIDER 2 GM/50 ML PREMIX IV PRN (05:13)
[2021-03-21] MEDS: INSULIN LISPRO 100 UNIT/ML SUBCUT SCH ×4 (09:31→20:37)
[2021-03-21] MEDS: METOPROLOL TARTRATE 25 MG TABLET PO SCH ×2 (13:15→20:37)
[2021-03-21] MEDS: amLODIPine 10 MG TABLET PO SCH (13:15)
[2021-03-21] MEDS: PANTOPRAZOLE 40 MG TABLET PO SCH (13:15)
[2021-03-21] MEDS: DOCUSATE SODIUM 100 MG CAPSULE PO SCH ×2 (13:15→20:37)
[2021-03-22] MEDS: cefTRIAXone 1,000 MG in SODIUM CHLORIDE 0.9% 100 ML IV SCH (00:31)
[2021-03-22] MEDS: MORPHINE 2 MG/1 ML SYRINGE IV PRN ×3 (03:30→17:17)
[2021-03-22 05:27] LABS: Basophils # 0.1 10*3/uL (0.0-0.2); Basophils % 0.3 % (0.0-0.8); Eosinophils # 0.3 10*3/uL (0.0-0.87); Eosinophils % 1.1 % (0.00-10.9); Hemoglobin 9.3 GM/DL (12.0-16.0); Immature Granulocytes % 2.1 %; Immature Granulocytes Absolute 0.49 #; Lymphocytes # 2.1 10*3/uL (1.4-4.0); Lymphocytes % 8.7 % (21.3-54.2); Mean Corpuscular Volume 84.5 FL (87-102); Monocytes % 12.5 % (1.7-12.7); Neutrophils % 75.3 % (38.7-73.9); Platelet Count 354 T/CUMM (130-400); Red Blood Count 3.55 MC/CUMM (3.8-5.5); Red Cell Distribution Width 19.5 % (9.3-17.3); White Blood Count 23.6 T/CUMM (4-12)
[2021-03-22 05:49] LABS: Albumin 2.3 G/DL (3.4-5.0); Calcium 8.5 MG/DL (8.5-10.1); Osmolality,Calculated 272.8 MOS/KG (273-304); Potassium 3.8 MMOL/L (3.5-5.1); Total Protein 6.6 G/DL (6.4-8.2)
[2021-03-22 05:59] LABS: Eosinophils 1 % (0-10); Lymphocytes 8 % (20-55); Segmented Neutrophils 84 % (50-85); Total Cells Counted 100
[2021-03-22 06:00] LABS: Platelet Estimate Increased
[2021-03-22 06:01] LABS: Hypochromasia Slight; Microcytosis 1+
[2021-03-22 06:02] LABS: Polychromasia Slight
[2021-03-22] MEDS: INSULIN LISPRO 100 UNIT/ML SUBCUT SCH ×4 (07:33→21:32)
[2021-03-22] MEDS: METOPROLOL TARTRATE 25 MG TABLET PO SCH ×2 (08:53→21:31)
[2021-03-22] MEDS: DOCUSATE SODIUM 100 MG CAPSULE PO SCH ×2 (08:54→21:31)
[2021-03-22] MEDS: PANTOPRAZOLE 40 MG TABLET PO SCH (08:54)
[2021-03-22] MEDS: amLODIPine 10 MG TABLET PO SCH (08:54)
[2021-03-22] MEDS: hydrALAZINE 20 MG/1 ML VIAL IV PRN (17:32)
[2021-03-23] MEDS: cefTRIAXone 1,000 MG in SODIUM CHLORIDE 0.9% 100 ML IV SCH (00:34)
[2021-03-23] MEDS: MORPHINE 2 MG/1 ML SYRINGE IV PRN ×2 (02:43→06:43)
[2021-03-23] MEDS: hydrALAZINE 20 MG/1 ML VIAL IV PRN (05:04)
[2021-03-23 05:53] LABS: Basophils # 0.1 10*3/uL (0.0-0.2); Basophils % 0.3 % (0.0-0.8); Eosinophils # 0.3 10*3/uL (0.0-0.87); Eosinophils % 1.3 % (0.00-10.9); Hematocrit 28.6 VOL% (35.7-47.0); Immature Granulocytes % 2.5 %; Immature Granulocytes Absolute 0.65 #; Lymphocytes # 2.5 10*3/uL (1.4-4.0); Lymphocytes % 9.5 % (21.3-54.2); Mean Corpuscular HGB Conc 31.5 GM/DL (32-36); Mean Corpuscular Volume 84.1 FL (87-102); Mean Platelet Volume 9.7 FL (9.6-12.0); Monocytes % 9.4 % (1.7-12.7); NRBC # 0.02 10*3/uL; Platelet Count 359 T/CUMM (130-400); Red Cell Distribution Width 19.6 % (9.3-17.3); White Blood Count 26.3 T/CUMM (4-12)
[2021-03-23 06:09] LABS: Albumin 2.5 G/DL (3.4-5.0); Bilirubin,Total 0.8 MG/DL (0.20-1.00); Calcium 8.4 MG/DL (8.5-10.1); Potassium 3.8 MMOL/L (3.5-5.1); Total Protein 6.9 G/DL (6.4-8.2)
[2021-03-23 07:01] LABS: Band Neutrophils 2 % (0-10); Eosinophils 2 % (0-10); Lymphocytes 13 % (20-55); Platelet Estimate Adequate; Segmented Neutrophils 72 % (50-85); Total Cells Counted 100
[2021-03-23 07:02] LABS: Hypochromasia 2+
[2021-03-23] MEDS: INSULIN LISPRO 100 UNIT/ML SUBCUT SCH ×4 (07:50→21:55)
[2021-03-23] MEDS: PANTOPRAZOLE 40 MG TABLET PO SCH (09:46)
[2021-03-23] MEDS: DOCUSATE SODIUM 100 MG CAPSULE PO SCH ×2 (09:46→21:55)
[2021-03-23] MEDS: METOPROLOL TARTRATE 25 MG TABLET PO SCH ×2 (09:46→21:55)
[2021-03-23] MEDS: amLODIPine 10 MG TABLET PO SCH (09:46)
[2021-03-23] MEDS: ONDANSETRON 4 MG/2 ML VIAL IV PRN (16:03)
[2021-03-23] MEDS: DEXAMETHASONE 10 MG/1 ML VIAL IV SCH (16:04)
[2021-03-23] MEDS: ETOPOSIDE 150 MG in SODIUM CHLORIDE 0.9% 500 ML IV SCH (17:26)
[2021-03-24] MEDS: cefTRIAXone 1,000 MG in SODIUM CHLORIDE 0.9% 100 ML IV SCH (01:34)
[2021-03-24 05:36] LABS: Basophils % 0.1 % (0.0-0.8); Hematocrit 26.6 VOL% (35.7-47.0); Hemoglobin 8.3 GM/DL (12.0-16.0); Immature Granulocytes Absolute 0.36 #; Lymphocytes # 1.1 10*3/uL (1.4-4.0); Lymphocytes % 6.5 % (21.3-54.2); Mean Corpuscular HGB Conc 31.2 GM/DL (32-36); Mean Corpuscular Volume 83.9 FL (87-102); Mean Platelet Volume 10.2 FL (9.6-12.0); Monocytes % 8.4 % (1.7-12.7); Platelet Count 325 T/CUMM (130-400); Red Blood Count 3.17 MC/CUMM (3.8-5.5); Red Cell Distribution Width 19.3 % (9.3-17.3); White Blood Count 17.6 T/CUMM (4-12)
[2021-03-24 06:04] LABS: Albumin 2.4 G/DL (3.4-5.0); Calcium 8.2 MG/DL (8.5-10.1); Osmolality,Calculated 270.2 MOS/KG (273-304); Potassium 4.6 MMOL/L (3.5-5.1)
[2021-03-24] MEDS ORDERED: SODIUM CHLORIDE 0.9% 1,000 ML IV PRN (07:43)
[2021-03-24] MEDS: DOCUSATE SODIUM 100 MG CAPSULE PO SCH ×2 (09:13→20:51)
[2021-03-24] MEDS: METOPROLOL TARTRATE 25 MG TABLET PO SCH ×2 (09:13→20:50)
[2021-03-24] MEDS: MORPHINE 2 MG/1 ML SYRINGE IV PRN ×2 (09:14→18:40)
[2021-03-24] MEDS: DEXAMETHASONE 10 MG/1 ML VIAL IV SCH (09:15)
[2021-03-24] MEDS: amLODIPine 10 MG TABLET PO SCH (09:15)
[2021-03-24] MEDS: PANTOPRAZOLE 40 MG TABLET PO SCH (09:15)
[2021-03-24] MEDS: INSULIN LISPRO 100 UNIT/ML SUBCUT SCH ×4 (09:58→20:52)
[2021-03-24] MEDS ORDERED: FAMOTIDINE 20 MG TABLET PO ONE (11:21)
[2021-03-24] MEDS ORDERED: diphenhydrAMINE CAP 50 MG CAPSULE PO ONE (11:21)
[2021-03-24] MEDS: ONDANSETRON 4 MG/2 ML VIAL IV PRN (11:36)
[2021-03-24] MEDS ORDERED: CARBOplatin 500 MG in SODIUM CHLORIDE 0.9% 250 ML IV ONE (12:08)
[2021-03-24] MEDS: ETOPOSIDE 150 MG in SODIUM CHLORIDE 0.9% 500 ML IV SCH (12:17)
[2021-03-24] MEDS: hydrALAZINE 20 MG/1 ML VIAL IV PRN ×2 (17:21→23:54)
[2021-03-25] MEDS: cefTRIAXone 1,000 MG in SODIUM CHLORIDE 0.9% 100 ML IV SCH (01:14)
[2021-03-25] MEDS: MORPHINE 2 MG/1 ML SYRINGE IV PRN ×2 (01:14→06:23)
[2021-03-25 03:59] LABS: Basophils % 0.2 % (0.0-0.8); Eosinophils # 0.2 10*3/uL (0.0-0.87); Eosinophils % 0.9 % (0.00-10.9); Hematocrit 33.9 VOL% (35.7-47.0); Immature Granulocytes % 1.1 %; Immature Granulocytes Absolute 0.21 #; Lymphocytes # 2.3 10*3/uL (1.4-4.0); Lymphocytes % 11.8 % (21.3-54.2); Mean Corpuscular HGB Conc 31.6 GM/DL (32-36); Mean Corpuscular Volume 84.5 FL (87-102); Monocytes % 4.6 % (1.7-12.7); Neutrophils % 81.4 % (38.7-73.9); Platelet Count 287 T/CUMM (130-400); Red Cell Distribution Width 17.9 % (9.3-17.3); White Blood Count 19.2 T/CUMM (4-12)
[2021-03-25 04:02] LABS: Red Blood Count 4.01 MC/CUMM (3.8-5.5)
[2021-03-25 04:03] LABS: Hemoglobin 10.7 GM/DL (12.0-16.0)
[2021-03-25 04:38] LABS: Albumin 2.5 G/DL (3.4-5.0); Bilirubin,Total 0.7 MG/DL (0.20-1.00); Calcium 8.5 MG/DL (8.5-10.1); Potassium 4.6 MMOL/L (3.5-5.1); Total Protein 6.9 G/DL (6.4-8.2)
[2021-03-25] MEDS ORDERED: hydrALAZINE 20 MG/1 ML VIAL IV ONE (05:31)
[2021-03-25] MEDS: MAGNESIUM SULF RIDER 2 GM/50 ML PREMIX IV PRN (06:38)
[2021-03-25] MEDS: INSULIN LISPRO 100 UNIT/ML SUBCUT SCH (07:39)
[2021-03-25] MEDS: METOPROLOL TARTRATE 25 MG TABLET PO SCH (08:56)
[2021-03-25] MEDS: DOCUSATE SODIUM 100 MG CAPSULE PO SCH (08:56)
[2021-03-25] MEDS: DEXAMETHASONE 10 MG/1 ML VIAL IV SCH (08:56)
[2021-03-25] MEDS: amLODIPine 10 MG TABLET PO SCH (08:56)
[2021-03-25] MEDS: PANTOPRAZOLE 40 MG TABLET PO SCH (08:56)
[2021-03-25] MEDS ORDERED: HEPARIN LOCK FLUSH 500 UNIT/5 ML SYRINGE IV ONE (09:55)
[2021-03-25 11:37] VITALS: BP 144/81
[2021-03-25] MEDS: ETOPOSIDE 150 MG in SODIUM CHLORIDE 0.9% 500 ML IV SCH (12:00)
== END 2021-03-25 11:30 | disposition home health service (06) | DRG 240 ==
LOC: N.ED 18:32 → SUATTDRO 21:02 → N.EDINP 21:02 → N.ICU 03-18 08:05 → N.2W 03-18 19:39
PROVIDERS: ADMIT Internal Medicine; ATTEND Internal Medicine

== ENCOUNTER 2021-04-09 18:32 | Inpatient (IN) ==
[2021-04-09] MEDS ORDERED: PANTOPRAZOLE 40 MG VIAL IV STA (19:02)
[2021-04-09] MEDS ORDERED: SODIUM CHLORIDE 0.9% 500 ML IV STA (19:02)
[2021-04-09] MEDS ORDERED: ONDANSETRON 4 MG/2 ML VIAL IV STA (19:02)
[2021-04-09] MEDS ORDERED: HYDROmorphone 2 MG/1 ML VIAL IV STA (19:02)
[2021-04-09 19:15] LABS: Basophils % 0.3 % (0.0-0.8); Eosinophils % 0.4 % (0.00-10.9); Immature Granulocytes Absolute 0.67 #; Lymphocytes # 4.3 10*3/uL (1.4-4.0); Lymphocytes % 38.4 % (21.3-54.2); Mean Corpuscular HGB Conc 29.3 GM/DL (32-36); Mean Corpuscular Volume 90.4 FL (87-102); Monocytes % 22.5 % (1.7-12.7); NRBC # 0.28 10*3/uL; Neutrophils % 32.4 % (38.7-73.9); Platelet Count 362 T/CUMM (130-400); Red Blood Count 1.66 MC/CUMM (3.8-5.5); Red Cell Distribution Width 17.9 % (9.3-17.3); White Blood Count 11.1 T/CUMM (4-12)
[2021-04-09 19:41] LABS: Alanine Aminotransferase 52 U/L (13-56); Albumin 3.1 G/DL (3.4-5.0); Alkaline Phosphatase 888 U/L (45-117); Amylase 50 U/L (25-115); Aspartate Amino Transferase 93 U/L (0-37); Blood Urea Nitrogen 55 MG/DL (7-18); Calcium 10.5 MG/DL (8.5-10.1); Carbon Dioxide 19 MMOL/L (21-32); Estimated Glom Filtration Rate 51 ML/MIN; Glucose 170 MG/DL (74-106); Osmolality,Calculated 288.1 MOS/KG (273-304); Potassium 4.8 MMOL/L (3.5-5.1); Sodium 135 MMOL/L (136-145)
[2021-04-09 19:57] LABS: Hemoglobin 4.4 GM/DL (12.0-16.0)
[2021-04-09] MEDS ORDERED: SODIUM CHLORIDE 0.9% 1,000 ML IV PRN (20:01)
[2021-04-09 20:38] LABS: Band Neutrophils 17 % (0-10); Eosinophils 1 % (0-10); Lymphocytes 37 % (20-55); Metamyelocytes 5 %; Myelocytes 4 %; Nucleated Red Blood Cells 3 (0-5); Plasma Cells 1; Segmented Neutrophils 27 % (50-85); Total Cells Counted 99
[2021-04-09 20:40] LABS: Hypochromasia 2+; Ovalocytes Few; Stomatocytes 1+
[2021-04-09 20:41] LABS: Platelet Estimate Normal; Polychromasia 2+
[2021-04-09] MEDS ORDERED: GLUCAGON 1 MG VIAL IM PRN (20:58)
[2021-04-09] MEDS ORDERED: DEXTROSE 50% 25 GM/50 ML SYRINGE IV PRN (20:58)
[2021-04-09] MEDS: SODIUM CHLORIDE 0.9% 1,000 ML IV SCH (22:07)
[2021-04-09 22:35] LABS: INR 1.2; PT Patient Result 13.4 SECS (10.5-12.0)
[2021-04-09] MEDS: INSULIN REGULAR 100 UNIT/ML SUBCUT SCH (23:10)
[2021-04-10] MEDS ORDERED: FUROSEMIDE 40 MG/4 ML VIAL ONE (01:01)
[2021-04-10] MEDS ORDERED: FUROSEMIDE 20 MG/2 ML VIAL IV STA (01:05)
[2021-04-10] MEDS: HYDROmorphone 2 MG/1 ML VIAL IV PRN ×7 (01:30→23:23)
[2021-04-10 03:45] LABS: Basophils # 0.1 10*3/uL (0.0-0.2); Basophils % 0.7 % (0.0-0.8); Eosinophils % 0.5 % (0.00-10.9); Immature Granulocytes % 6.6 %; Immature Granulocytes Absolute 0.55 #; Lymphocytes # 2.8 10*3/uL (1.4-4.0); Lymphocytes % 33.4 % (21.3-54.2); Mean Corpuscular HGB Conc 31.3 GM/DL (32-36); Mean Corpuscular Volume 89.3 FL (87-102); Mean Platelet Volume 10.5 FL (9.6-12.0); Monocytes % 24.5 % (1.7-12.7); Neutrophils % 34.3 % (38.7-73.9); Platelet Count 311 T/CUMM (130-400); Red Blood Count 1.97 MC/CUMM (3.8-5.5); Red Cell Distribution Width 16.6 % (9.3-17.3); White Blood Count 8.3 T/CUMM (4-12)
[2021-04-10 03:47] LABS: Hematocrit 17.6 VOL% (35.7-47.0); Hemoglobin 5.5 GM/DL (12.0-16.0)
[2021-04-10 04:11] LABS: Albumin 2.9 G/DL (3.4-5.0); Bilirubin,Total 0.8 MG/DL (0.20-1.00); Calcium 9.9 MG/DL (8.5-10.1); Osmolality,Calculated 289.8 MOS/KG (273-304); Total Protein 6.7 G/DL (6.4-8.2)
[2021-04-10 04:11] LABS: Band Neutrophils 1 % (0-10); Hypochromasia 1+; Lymphocytes 34 % (20-55); Metamyelocytes 1 %; Microcytosis 1+; Myelocytes 3 %; Nucleated Red Blood Cells 7 (0-5); Polychromasia Slight; Promyelocytes 1 %; Segmented Neutrophils 37 % (50-85); Total Cells Counted 100
[2021-04-10 04:12] LABS: Atypical Lymphocytes Few; Platelet Estimate Normal
[2021-04-10] MEDS: PANTOPRAZOLE INJ 200 MG in SODIUM CHLORIDE 0.9% 250 ML IV SCH (06:33)
[2021-04-10] MEDS: SODIUM CHLORIDE 0.9% 1,000 ML IV SCH ×2 (07:24→21:14)
[2021-04-10] MEDS ORDERED: SODIUM CHLORIDE 0.9% 1,000 ML IV PRN (07:36)
[2021-04-10] MEDS: INSULIN REGULAR 100 UNIT/ML SUBCUT SCH ×4 (08:36→20:51)
[2021-04-10 08:57] LABS: Hematocrit 22.2 VOL% (35.7-47.0)
[2021-04-10 17:06] LABS: Hematocrit 24.7 VOL% (35.7-47.0); Hemoglobin 7.9 GM/DL (12.0-16.0)
[2021-04-10] MEDS ORDERED: FUROSEMIDE 20 MG/2 ML VIAL IV ONE (17:31)
[2021-04-11] MEDS: HYDROmorphone 2 MG/1 ML VIAL IV PRN ×6 (02:04→22:59)
[2021-04-11 02:20] LABS: Hematocrit 27.1 VOL% (35.7-47.0); Hemoglobin 8.3 GM/DL (12.0-16.0)
[2021-04-11] MEDS: SODIUM CHLORIDE 0.9% 1,000 ML IV SCH ×2 (06:09→16:44)
[2021-04-11 07:06] LABS: Basophils # 0.1 10*3/uL (0.0-0.2); Basophils % 0.9 % (0.0-0.8); Eosinophils # 0.1 10*3/uL (0.0-0.87); Eosinophils % 0.5 % (0.00-10.9); Hematocrit 25.3 VOL% (35.7-47.0); Hemoglobin 7.9 GM/DL (12.0-16.0); Immature Granulocytes % 6.4 %; Immature Granulocytes Absolute 0.64 #; Lymphocytes # 1.9 10*3/uL (1.4-4.0); Lymphocytes % 19.2 % (21.3-54.2); Mean Corpuscular HGB Conc 31.2 GM/DL (32-36); Mean Corpuscular Volume 90.7 FL (87-102); Mean Platelet Volume 10.7 FL (9.6-12.0); Monocytes % 27.7 % (1.7-12.7); NRBC # 0.18 10*3/uL; Neutrophils % 45.3 % (38.7-73.9); Platelet Count 329 T/CUMM (130-400); Red Blood Count 2.79 MC/CUMM (3.8-5.5)
[2021-04-11 07:35] LABS: Osmolality,Calculated 279.1 MOS/KG (273-304); Potassium 4.7 MMOL/L (3.5-5.1)
[2021-04-11 08:12] LABS: Anisocytosis 2+; Atypical Lymphocytes Few; Band Neutrophils 1 % (0-10); Hypochromasia 2+; Lymphocytes 22 % (20-55); Macrocytosis 1+; Microcytosis 1+; Nucleated Red Blood Cells 1 (0-5); Polychromasia Few; Segmented Neutrophils 64 % (50-85); Total Cells Counted 100
[2021-04-11 08:13] LABS: Platelet Estimate Normal
[2021-04-11] MEDS: INSULIN REGULAR 100 UNIT/ML SUBCUT SCH ×4 (09:31→21:34)
[2021-04-11] MEDS: fentaNYL 25 MCG/HR PATCH TRANSDERM SCH (10:46)
[2021-04-11] MEDS: PANTOPRAZOLE INJ 200 MG in SODIUM CHLORIDE 0.9% 250 ML IV SCH (14:10)
[2021-04-11 17:44] LABS: Bacteria,Urine Occasional /HPF (Few); Bilirubin,Urine Negative (Negative); Blood, Urine Negative (Negative); Glucose,Urine (UA) Negative (Negative); Hyaline Casts,Urine 4 /LPF (0-3); Ketones,Urine Negative (Negative); Mucus,Urine Occasional /LPF (Occasional); Nitrite,Urine Negative (Negative); Protein,Urine Negative; RBC,Urine 1 /HPF (0-4); Squamous Epithelial Cell,Urine Occasional /HPF (0-10); Urine Appearance CLEAR (Clear); Urine Color Yellow (Yellow); Urine Specific Gravity 1.012 (1.001-1.035); Urine Urobilinogen < 2.0 EU/DL (0.2-1.0)
[2021-04-11 20:19] LABS: Basophils # 0.1 10*3/uL (0.0-0.2); Basophils % 0.5 % (0.0-0.8); Eosinophils % 0.4 % (0.00-10.9); Hematocrit 24.1 VOL% (35.7-47.0); Hemoglobin 7.6 GM/DL (12.0-16.0); Immature Granulocytes % 5.5 %; Lymphocytes # 1.8 10*3/uL (1.4-4.0); Lymphocytes % 16.5 % (21.3-54.2); Mean Corpuscular HGB Conc 31.5 GM/DL (32-36); Mean Corpuscular Volume 88.9 FL (87-102); Mean Platelet Volume 10.2 FL (9.6-12.0); Monocytes % 28.3 % (1.7-12.7); NRBC # 0.07 10*3/uL; Neutrophils % 48.8 % (38.7-73.9); Platelet Count 295 T/CUMM (130-400); Red Blood Count 2.71 MC/CUMM (3.8-5.5); Red Cell Distribution Width 17.2 % (9.3-17.3); White Blood Count 10.9 T/CUMM (4-12)
[2021-04-11 20:57] LABS: Band Neutrophils 4 % (0-10); Lymphocytes 10 % (20-55); Myelocytes 2 %; Nucleated Red Blood Cells 1 (0-5); Segmented Neutrophils 51 % (50-85); Total Cells Counted 100
[2021-04-11 20:58] LABS: Anisocytosis 1+; Hypochromasia Slight; Polychromasia Few; Reactive Lymphocytes Few
[2021-04-11 20:59] LABS: Smudge Cells Few; Toxic Granulation 1+
[2021-04-11 21:00] LABS: Platelet Estimate Adequate
[2021-04-12] MEDS: SODIUM CHLORIDE 0.9% 1,000 ML IV SCH ×3 (03:38→20:50)
[2021-04-12] MEDS: HYDROmorphone 2 MG/1 ML VIAL IV PRN ×3 (04:47→20:51)
[2021-04-12 05:16] LABS: Basophils # 0.1 10*3/uL (0.0-0.2); Basophils % 0.5 % (0.0-0.8); Eosinophils % 0.2 % (0.00-10.9); Hematocrit 24.2 VOL% (35.7-47.0); Hemoglobin 7.6 GM/DL (12.0-16.0); Immature Granulocytes % 5.7 %; Immature Granulocytes Absolute 0.64 #; Lymphocytes % 17.5 % (21.3-54.2); Mean Corpuscular HGB Conc 31.4 GM/DL (32-36); Mean Platelet Volume 10.6 FL (9.6-12.0); Monocytes % 26.5 % (1.7-12.7); NRBC # 0.06 10*3/uL; Neutrophils % 49.6 % (38.7-73.9); Platelet Count 319 T/CUMM (130-400); Red Blood Count 2.66 MC/CUMM (3.8-5.5); Red Cell Distribution Width 17.2 % (9.3-17.3); White Blood Count 11.2 T/CUMM (4-12)
[2021-04-12 05:30] LABS: Calcium 8.9 MG/DL (8.5-10.1); Osmolality,Calculated 277.7 MOS/KG (273-304); Potassium 4.2 MMOL/L (3.5-5.1)
[2021-04-12 05:53] LABS: Atypical Lymphocytes Few; Hypochromasia 1+; Lymphocytes 15 % (20-55); Microcytosis 1+; Myelocytes 2 %; Polychromasia Slight; Segmented Neutrophils 55 % (50-85); Total Cells Counted 100
[2021-04-12 05:54] LABS: Anisocytosis 1+; Platelet Estimate Normal
[2021-04-12] MEDS: INSULIN REGULAR 100 UNIT/ML SUBCUT SCH ×4 (08:10→21:43)
[2021-04-12] MEDS ORDERED: LACTATED RINGERS 1,000 ML IV SCH (08:30)
[2021-04-12] MEDS ORDERED: propofoL 200 MG/20 ML VIAL IV ONE ×2 (08:43→09:03)
[2021-04-12] MEDS ORDERED: LIDOCAINE 2% 5 ML VIAL ONE (08:43)
[2021-04-12] MEDS ORDERED: EPINEPHrine 1 MG/ML VIAL ONE (09:25)
[2021-04-12] MEDS: PANTOPRAZOLE 40 MG VIAL IV SCH (20:51)
[2021-04-12 22:29] LABS: Hematocrit 23.2 VOL% (35.7-47.0); Hemoglobin 7.1 GM/DL (12.0-16.0)
[2021-04-13] MEDS: HYDROmorphone 2 MG/1 ML VIAL IV PRN ×5 (04:55→21:35)
[2021-04-13 06:41] LABS: Basophils # 0.1 10*3/uL (0.0-0.2); Basophils % 0.5 % (0.0-0.8); Eosinophils % 0.3 % (0.00-10.9); Hematocrit 23.4 VOL% (35.7-47.0); Hemoglobin 7.3 GM/DL (12.0-16.0); Immature Granulocytes % 3.8 %; Immature Granulocytes Absolute 0.39 #; Lymphocytes # 1.7 10*3/uL (1.4-4.0); Lymphocytes % 16.7 % (21.3-54.2); Mean Corpuscular HGB Conc 31.2 GM/DL (32-36); Mean Corpuscular Volume 91.4 FL (87-102); Mean Platelet Volume 10.8 FL (9.6-12.0); Monocytes % 22.6 % (1.7-12.7); NRBC # 0.02 10*3/uL; Neutrophils % 56.1 % (38.7-73.9); Platelet Count 366 T/CUMM (130-400); Red Blood Count 2.56 MC/CUMM (3.8-5.5); Red Cell Distribution Width 16.9 % (9.3-17.3); White Blood Count 10.2 T/CUMM (4-12)
[2021-04-13 06:58] LABS: Calcium 8.6 MG/DL (8.5-10.1); Osmolality,Calculated 273.7 MOS/KG (273-304); Potassium 4.1 MMOL/L (3.5-5.1)
[2021-04-13 07:03] LABS: Hypochromasia 1+; Lymphocytes 21 % (20-55); Microcytosis 1+; Platelet Estimate Adequate; Segmented Neutrophils 60 % (50-85); Total Cells Counted 100
[2021-04-13] MEDS: INSULIN REGULAR 100 UNIT/ML SUBCUT SCH ×4 (09:24→21:12)
[2021-04-13] MEDS: PANTOPRAZOLE 40 MG VIAL IV SCH ×2 (09:25→21:12)
[2021-04-13] MEDS: SODIUM CHLORIDE 0.9% 1,000 ML IV SCH ×2 (09:32→22:35)
[2021-04-13] MEDS ORDERED: SODIUM CHLORIDE 0.9% 1,000 ML IV PRN ×2 (11:00→11:04)
[2021-04-13] MEDS ORDERED: FUROSEMIDE 20 MG/2 ML VIAL IV PRN (11:04)
[2021-04-14] MEDS: HYDROmorphone 2 MG/1 ML VIAL IV PRN ×5 (01:59→21:52)
[2021-04-14 06:27] LABS: Basophils # 0.1 10*3/uL (0.0-0.2); Basophils % 0.5 % (0.0-0.8); Eosinophils % 0.3 % (0.00-10.9); Hematocrit 28.1 VOL% (35.7-47.0); Hemoglobin 8.7 GM/DL (12.0-16.0); Immature Granulocytes % 3.8 %; Immature Granulocytes Absolute 0.47 #; Lymphocytes # 1.8 10*3/uL (1.4-4.0); Lymphocytes % 14.5 % (21.3-54.2); Mean Corpuscular Volume 89.8 FL (87-102); Mean Platelet Volume 10.7 FL (9.6-12.0); Monocytes % 18.6 % (1.7-12.7); Neutrophils % 62.3 % (38.7-73.9); Platelet Count 431 T/CUMM (130-400); Red Blood Count 3.13 MC/CUMM (3.8-5.5); Red Cell Distribution Width 16.6 % (9.3-17.3); White Blood Count 12.4 T/CUMM (4-12)
[2021-04-14 06:50] LABS: Calcium 8.2 MG/DL (8.5-10.1); Osmolality,Calculated 276.4 MOS/KG (273-304); Potassium 4.4 MMOL/L (3.5-5.1)
[2021-04-14 06:53] LABS: Atypical Lymphocytes Few; Band Neutrophils 1 % (0-10); Hypochromasia 1+; Lymphocytes 19 % (20-55); Microcytosis 1+; Myelocytes 1 %; Ovalocytes Slight; Platelet Estimate Increased; Polychromasia Slight; Segmented Neutrophils 61 % (50-85); Total Cells Counted 100
[2021-04-14] MEDS: INSULIN REGULAR 100 UNIT/ML SUBCUT SCH ×4 (07:35→20:59)
[2021-04-14] MEDS: PANTOPRAZOLE 40 MG VIAL IV SCH ×2 (09:04→21:18)
[2021-04-14] MEDS: fentaNYL 25 MCG/HR PATCH TRANSDERM SCH (09:07)
[2021-04-14] MEDS: SODIUM CHLORIDE 0.9% 1,000 ML IV SCH ×2 (11:51→23:11)
[2021-04-14] MEDS ORDERED: diphenhydrAMINE CAP 25 MG CAPSULE PO PRN (13:11)
[2021-04-14] MEDS: METOPROLOL TARTRATE 25 MG TABLET PO SCH (21:17)
[2021-04-15] MEDS: SODIUM CHLORIDE 0.9% 1,000 ML IV SCH ×2 (00:14→09:00)
[2021-04-15] MEDS: HYDROmorphone 2 MG/1 ML VIAL IV PRN ×2 (01:19→06:27)
[2021-04-15 07:02] LABS: Basophils # 0.1 10*3/uL (0.0-0.2); Basophils % 0.7 % (0.0-0.8); Eosinophils # 0.1 10*3/uL (0.0-0.87); Eosinophils % 0.5 % (0.00-10.9); Hematocrit 27.2 VOL% (35.7-47.0); Hemoglobin 8.4 GM/DL (12.0-16.0); Immature Granulocytes % 2.8 %; Immature Granulocytes Absolute 0.37 #; Lymphocytes # 2.3 10*3/uL (1.4-4.0); Lymphocytes % 17.4 % (21.3-54.2); Mean Corpuscular HGB Conc 30.9 GM/DL (32-36); Mean Corpuscular Volume 91.3 FL (87-102); Mean Platelet Volume 10.9 FL (9.6-12.0); Monocytes % 15.8 % (1.7-12.7); Neutrophils % 62.8 % (38.7-73.9); Platelet Count 478 T/CUMM (130-400); Red Blood Count 2.98 MC/CUMM (3.8-5.5); Red Cell Distribution Width 16.7 % (9.3-17.3)
[2021-04-15 07:24] LABS: Eosinophils 1 % (0-10); Hypochromasia 1+; Lymphocytes 13 % (20-55); Microcytosis 1+; Platelet Estimate Adequate; Segmented Neutrophils 72 % (50-85); Total Cells Counted 100
[2021-04-15 07:29] LABS: Albumin 2.2 G/DL (3.4-5.0); Bilirubin,Total 1.8 MG/DL (0.20-1.00); Calcium 8.5 MG/DL (8.5-10.1); Osmolality,Calculated 275.4 MOS/KG (273-304); Potassium 4.2 MMOL/L (3.5-5.1); Total Protein 6.1 G/DL (6.4-8.2)
[2021-04-15] MEDS: INSULIN REGULAR 100 UNIT/ML SUBCUT SCH ×2 (08:57→12:36)
[2021-04-15] MEDS ORDERED: lisinopriL 20 MG TABLET PO SCH (09:00)
[2021-04-15] MEDS ORDERED: hydroCHLOROthiazide 25 MG TABLET PO SCH (09:00)
[2021-04-15] MEDS ORDERED: amLODIPine 10 MG TABLET PO SCH (09:00)
[2021-04-15] MEDS ORDERED: BISACODYL 10 MG SUPP RECTAL ONE (09:25)
[2021-04-15] MEDS: METOPROLOL TARTRATE 25 MG TABLET PO SCH (10:28)
[2021-04-15] MEDS: PANTOPRAZOLE 40 MG VIAL IV SCH (10:29)
[2021-04-15 11:49] VITALS: BP 155/79
[2021-04-15] MEDS ORDERED: DOCUSATE SODIUM 100 MG CAPSULE PO SCH (21:00)
[2021-04-16] MEDS ORDERED: POLYETHYLENE GLYCOL POWDER 17 GM PACK PO SCH (09:00)
== END 2021-04-15 14:30 | disposition home health service (06) | DRG 241 ==
LOC: EDUNIT# → EDBD → N.ED 18:32 → N.EDINP 20:58 → N.2E 04-10 02:43
PROVIDERS: ADMIT Internal Medicine; ATTEND Internal Medicine

== ENCOUNTER 2021-05-03 19:02 | Inpatient (IN) ==
[2021-05-03] MEDS ORDERED: HYDROmorphone 2 MG/1 ML VIAL IV STA (19:33)
[2021-05-03] MEDS ORDERED: ONDANSETRON 4 MG/2 ML VIAL IV STA (19:33)
[2021-05-03] MEDS ORDERED: SODIUM CHLORIDE 0.9% 1,000 ML IV STA ×2 (19:33→20:47)
[2021-05-03 20:10] LABS: Basophils % 0.1 % (0.0-0.8); Eosinophils % 0.1 % (0.00-10.9); Hematocrit 23.9 VOL% (35.7-47.0); Hemoglobin 7.5 GM/DL (12.0-16.0); Immature Granulocytes % 1.6 %; Immature Granulocytes Absolute 0.34 #; Lymphocytes # 1.1 10*3/uL (1.4-4.0); Lymphocytes % 5.3 % (21.3-54.2); Mean Corpuscular HGB Conc 31.4 GM/DL (32-36); Mean Platelet Volume 11.2 FL (9.6-12.0); Monocytes % 10.2 % (1.7-12.7); Neutrophils % 82.7 % (38.7-73.9); Platelet Count 424 T/CUMM (130-400); Red Blood Count 2.78 MC/CUMM (3.8-5.5); Red Cell Distribution Width 16.4 % (9.3-17.3); White Blood Count 20.7 T/CUMM (4-12)
[2021-05-03 20:30] LABS: Albumin 2.6 G/DL (3.4-5.0); Bilirubin,Total 1.8 MG/DL (0.20-1.00); Calcium 8.9 MG/DL (8.5-10.1); Osmolality,Calculated 262.9 MOS/KG (273-304); Potassium 5.6 MMOL/L (3.5-5.1); Total Protein 7.8 G/DL (6.4-8.2)
[2021-05-03] MEDS ORDERED: PIPERACILLIN/TAZOBACTAM 3,375 MG in SODIUM CHLORIDE 0.9% 100 ML IV STA (21:08)
[2021-05-03 21:16] LABS: Eosinophils 1 % (0-10); Lymphocytes 7 % (20-55); Metamyelocytes 3 %; Platelet Estimate Increased; Segmented Neutrophils 87 % (50-85); Total Cells Counted 100
[2021-05-03 21:57] LABS: Bacteria,Urine Occasional /HPF (Few); Bilirubin,Urine Negative (Negative); Blood, Urine Small mg/dL (Negative); Glucose,Urine (UA) Negative (Negative); Ketones,Urine Negative (Negative); Nitrite,Urine Negative (Negative); Protein,Urine 30 MG/DL; RBC,Urine 4 /HPF (0-4); Squamous Epithelial Cell,Urine Occasional /HPF (0-10); Urine Appearance Slightly Hazy (Clear); Urine Color Amber (Yellow); Urine Urobilinogen < 2.0 EU/DL (<2.0)
[2021-05-03 23:07] LABS: INR 1.4; PT Patient Result 14.9 SECS (10.5-12.0)
[2021-05-03] MEDS ORDERED: DEXTROSE 50% 25 GM/50 ML SYRINGE IV PRN (23:20)
[2021-05-03] MEDS ORDERED: GLUCAGON 1 MG VIAL IM PRN (23:20)
[2021-05-03] MEDS ORDERED: SIMETHICONE CHEW 125 MG TABLET PO PRN (23:21)
[2021-05-03] MEDS ORDERED: hydrALAZINE 20 MG/1 ML VIAL IV PRN (23:21)
[2021-05-03] MEDS ORDERED: ONDANSETRON 4 MG/2 ML VIAL IV PRN (23:21)
[2021-05-03] MEDS ORDERED: PROCHLORPERAZINE 5 MG TABLET PO PRN (23:52)
[2021-05-03] MEDS: SODIUM CHLORIDE 0.9% 1,000 ML IV SCH (23:57)
[2021-05-04] MEDS: MORPHINE 2 MG/1 ML SYRINGE IV PRN ×2 (01:47→06:46)
[2021-05-04] MEDS ORDERED: SODIUM POLYSTYRENE SULFATE 15 GM/60 ML BOTTLE PO STA (02:34)
[2021-05-04] MEDS: HYDROmorphone 2 MG TABLET PO PRN ×4 (03:09→22:29)
[2021-05-04 06:06] LABS: Basophils % 0.2 % (0.0-0.8); Eosinophils % 0.1 % (0.00-10.9); Hematocrit 23.1 VOL% (35.7-47.0); Hemoglobin 7.1 GM/DL (12.0-16.0); Immature Granulocytes % 1.4 %; Immature Granulocytes Absolute 0.24 #; Lymphocytes % 5.9 % (21.3-54.2); Mean Corpuscular HGB Conc 30.7 GM/DL (32-36); Mean Corpuscular Volume 87.5 FL (87-102); Mean Platelet Volume 10.9 FL (9.6-12.0); Monocytes % 11.2 % (1.7-12.7); Neutrophils % 81.2 % (38.7-73.9); Platelet Count 391 T/CUMM (130-400); Red Blood Count 2.64 MC/CUMM (3.8-5.5); Red Cell Distribution Width 16.6 % (9.3-17.3); White Blood Count 17.2 T/CUMM (4-12)
[2021-05-04 06:35] LABS: Albumin 2.3 G/DL (3.4-5.0); Bilirubin,Total 2.3 MG/DL (0.20-1.00); Calcium 8.4 MG/DL (8.5-10.1); Osmolality,Calculated 270.1 MOS/KG (273-304); Potassium 4.9 MMOL/L (3.5-5.1)
[2021-05-04 06:47] LABS: Band Neutrophils 3 % (0-10); Lymphocytes 9 % (20-55); Macrocytosis Slight; Platelet Estimate Normal; Segmented Neutrophils 77 % (50-85); Total Cells Counted 100
[2021-05-04 06:48] LABS: Anisocytosis 2+
[2021-05-04] MEDS ORDERED: hydroCHLOROthiazide 25 MG TABLET PO SCH (09:00)
[2021-05-04] MEDS ORDERED: fentaNYL 25 MCG/HR PATCH TRANSDERM PRN (09:00)
[2021-05-04] MEDS: amLODIPine 10 MG TABLET PO SCH (09:34)
[2021-05-04] MEDS: PANTOPRAZOLE 40 MG TABLET PO SCH (09:34)
[2021-05-04] MEDS: POLYETHYLENE GLYCOL POWDER 17 GM PACK PO SCH (09:34)
[2021-05-04] MEDS: NYSTATIN 500,000 UNIT/5 ML UDCUP SWISH/SWAL SCH ×4 (09:36→20:03)
[2021-05-04] MEDS: METOPROLOL TARTRATE 25 MG TABLET PO SCH ×2 (09:37→20:03)
[2021-05-04] MEDS: DOCUSATE SODIUM 100 MG CAPSULE PO SCH ×2 (09:37→20:03)
[2021-05-04] MEDS ORDERED: fentaNYL 50 MCG/HR PATCH TRANSDERM SCH (09:45)
[2021-05-04] MEDS ORDERED: HYDROmorphone 2 MG/1 ML VIAL IV PRN (09:52)
[2021-05-04] MEDS: SODIUM CHLORIDE 0.9% 1,000 ML IV SCH ×3 (10:24→22:19)
[2021-05-04] MEDS: INSULIN REGULAR 100 UNIT/ML SUBCUT SCH ×4 (10:24→20:03)
[2021-05-04] MEDS ORDERED: SODIUM CHLORIDE 0.9% 1,000 ML IV PRN (10:54)
[2021-05-04] MEDS ORDERED: PIPERACILLIN/TAZOBACTAM 3,375 MG in SODIUM CHLORIDE 0.9% 100 ML IV SCH (15:00)
[2021-05-04] MEDS ORDERED: MEROPENEM 500 MG in SODIUM CHLORIDE 0.9% 100 ML IV SCH (21:00)
[2021-05-04] MEDS: PIPERACILLIN/TAZOBACTAM 3,375 MG in SODIUM CHLORIDE 0.9% 100 ML IV SCH (22:20)
[2021-05-05] MEDS: PIPERACILLIN/TAZOBACTAM 3,375 MG in SODIUM CHLORIDE 0.9% 100 ML IV SCH ×2 (06:19→17:47)
[2021-05-05 06:41] LABS: Basophils % 0.2 % (0.0-0.8); Eosinophils # 0.1 10*3/uL (0.0-0.87); Eosinophils % 0.5 % (0.00-10.9); Hematocrit 27.7 VOL% (35.7-47.0); Immature Granulocytes % 1.6 %; Immature Granulocytes Absolute 0.24 #; Lymphocytes # 1.2 10*3/uL (1.4-4.0); Lymphocytes % 7.8 % (21.3-54.2); Mean Corpuscular HGB Conc 31.4 GM/DL (32-36); Mean Corpuscular Volume 87.7 FL (87-102); Mean Platelet Volume 10.8 FL (9.6-12.0); Monocytes % 13.4 % (1.7-12.7); Neutrophils % 76.5 % (38.7-73.9); Platelet Count 421 T/CUMM (130-400); Red Blood Count 3.16 MC/CUMM (3.8-5.5); Red Cell Distribution Width 15.9 % (9.3-17.3); White Blood Count 15.1 T/CUMM (4-12)
[2021-05-05 06:43] LABS: Hemoglobin 8.7 GM/DL (12.0-16.0)
[2021-05-05 06:46] LABS: INR 1.3; PT Patient Result 14.2 SECS (10.5-12.0)
[2021-05-05 06:58] LABS: Albumin 2.1 G/DL (3.4-5.0); Bilirubin,Total 1.8 MG/DL (0.20-1.00); Calcium 8.2 MG/DL (8.5-10.1); Osmolality,Calculated 272.5 MOS/KG (273-304); Potassium 4.2 MMOL/L (3.5-5.1); Total Protein 6.8 G/DL (6.4-8.2)
[2021-05-05] MEDS: INSULIN REGULAR 100 UNIT/ML SUBCUT SCH ×4 (08:28→20:58)
[2021-05-05] MEDS: PANTOPRAZOLE 40 MG TABLET PO SCH (08:32)
[2021-05-05] MEDS: HYDROmorphone 2 MG TABLET PO PRN ×3 (08:32→20:57)
[2021-05-05] MEDS: METOPROLOL TARTRATE 25 MG TABLET PO SCH ×2 (08:33→20:57)
[2021-05-05] MEDS: NYSTATIN 500,000 UNIT/5 ML UDCUP SWISH/SWAL SCH ×4 (08:33→20:58)
[2021-05-05] MEDS: DOCUSATE SODIUM 100 MG CAPSULE PO SCH ×2 (08:33→20:57)
[2021-05-05] MEDS: POLYETHYLENE GLYCOL POWDER 17 GM PACK PO SCH (08:33)
[2021-05-05] MEDS: amLODIPine 10 MG TABLET PO SCH (08:33)
[2021-05-05] MEDS: SODIUM CHLORIDE 0.9% 1,000 ML IV SCH ×2 (08:35→16:05)
[2021-05-05] MEDS ORDERED: SODIUM CHLORIDE 0.9% 1,000 ML IV PRN (09:02)
[2021-05-05] MEDS ORDERED: fentaNYL 75 MCG/HR PATCH TRANSDERM SCH (09:30)
[2021-05-06] MEDS: PIPERACILLIN/TAZOBACTAM 3,375 MG in SODIUM CHLORIDE 0.9% 100 ML IV SCH ×2 (02:13→09:20)
[2021-05-06 06:38] LABS: Basophils % 0.2 % (0.0-0.8); Eosinophils # 0.1 10*3/uL (0.0-0.87); Eosinophils % 0.4 % (0.00-10.9); Hematocrit 32.5 VOL% (35.7-47.0); Hemoglobin 10.3 GM/DL (12.0-16.0); Immature Granulocytes % 2.3 %; Immature Granulocytes Absolute 0.38 #; Lymphocytes # 1.4 10*3/uL (1.4-4.0); Lymphocytes % 8.3 % (21.3-54.2); Mean Corpuscular HGB Conc 31.7 GM/DL (32-36); Mean Corpuscular Volume 86.9 FL (87-102); Mean Platelet Volume 10.3 FL (9.6-12.0); Monocytes % 13.7 % (1.7-12.7); Neutrophils % 75.1 % (38.7-73.9); Platelet Count 487 T/CUMM (130-400); Red Blood Count 3.74 MC/CUMM (3.8-5.5); Red Cell Distribution Width 16.2 % (9.3-17.3); White Blood Count 16.8 T/CUMM (4-12)
[2021-05-06 07:03] LABS: Calcium 8.7 MG/DL (8.5-10.1); Osmolality,Calculated 274.1 MOS/KG (273-304); Potassium 4.2 MMOL/L (3.5-5.1)
[2021-05-06] MEDS: INSULIN REGULAR 100 UNIT/ML SUBCUT SCH ×3 (08:34→17:32)
[2021-05-06] MEDS: SODIUM CHLORIDE 0.9% 1,000 ML IV SCH ×3 (08:35→17:34)
[2021-05-06] MEDS ORDERED: fentaNYL 75 MCG/HR PATCH TRANSDERM SCH (09:00)
[2021-05-06 09:16] LABS: Albumin 2.1 G/DL (3.4-5.0); Bilirubin,Total 2.6 MG/DL (0.20-1.00); Calcium 8.6 MG/DL (8.5-10.1); Potassium 4.3 MMOL/L (3.5-5.1); Total Protein 6.9 G/DL (6.4-8.2)
[2021-05-06] MEDS: NYSTATIN 500,000 UNIT/5 ML UDCUP SWISH/SWAL SCH ×2 (09:19→13:12)
[2021-05-06] MEDS: PANTOPRAZOLE 40 MG TABLET PO SCH (09:20)
[2021-05-06] MEDS: POLYETHYLENE GLYCOL POWDER 17 GM PACK PO SCH (09:20)
[2021-05-06] MEDS: DOCUSATE SODIUM 100 MG CAPSULE PO SCH (09:20)
[2021-05-06] MEDS: amLODIPine 10 MG TABLET PO SCH (09:20)
[2021-05-06] MEDS: METOPROLOL TARTRATE 25 MG TABLET PO SCH (09:20)
[2021-05-06] MEDS: HYDROmorphone 2 MG TABLET PO PRN (12:10)
[2021-05-06 16:22] VITALS: BP 134/62
[2021-05-06] MEDS ORDERED: HEPARIN LOCK FLUSH 500 UNIT/5 ML SYRINGE IV ONE (16:49)
== END 2021-05-06 17:00 | disposition home health service (06) | DRG 469 ==
LOC: EDBD → EDUNIT# → N.ED 19:02 → SUATTDRO 23:30 → N.EDINP 23:30 → N.3E 05-04 01:23 → N.2E 05-04 14:45
PROVIDERS: ADMIT Phlebology; ATTEND Internal Medicine

== ENCOUNTER 2021-08-12 12:12 | Inpatient (IN) ==
[2021-08-12] MEDS ORDERED: SODIUM CHLORIDE 0.9% 1,000 ML IV STA (12:32)
[2021-08-12 13:30] LABS: Basophils % 0.2 % (0.0-0.8); Eosinophils % 0.2 % (0.00-10.9); Hematocrit 27.1 VOL% (35.7-47.0); Hemoglobin 8.1 GM/DL (12.0-16.0); Immature Granulocytes Absolute 0.13 #; Lymphocytes # 1.1 10*3/uL (1.4-4.0); Lymphocytes % 8.6 % (21.3-54.2); Mean Corpuscular HGB Conc 29.9 GM/DL (32-36); Mean Corpuscular Volume 87.1 FL (87-102); Mean Platelet Volume 11.1 FL (9.6-12.0); Monocytes % 6.6 % (1.7-12.7); Neutrophils % 83.4 % (38.7-73.9); Platelet Count 325 T/CUMM (130-400); Red Blood Count 3.11 MC/CUMM (3.8-5.5); Red Cell Distribution Width 16.3 % (9.3-17.3); White Blood Count 13.2 T/CUMM (4-12)
[2021-08-12 13:38] LABS: Bacteria,Urine Occasional /HPF (Few); Glucose,Urine (UA) Negative (Negative); Hyaline Casts,Urine 26 /LPF (0-3); Ketones,Urine Trace mg/dL (Negative); Mucus,Urine Occasional /LPF (Occasional); Nitrite,Urine Negative (Negative); Protein,Urine 30 mg/dL (Negative); RBC,Urine 1 /HPF (0-4); Squamous Epithelial Cell,Urine Occasional /HPF (0-10); Urine Appearance Clear (Clear); Urine Color Yellow (Yellow)
[2021-08-12 13:39] LABS: Bilirubin,Urine Moderate mg/dL (Negative); Blood, Urine Negative (Negative)
[2021-08-12 13:45] LABS: Albumin 2.2 G/DL (3.4-5.0); Calcium 9.4 MG/DL (8.5-10.1); Osmolality,Calculated 275.8 MOS/KG (273-304); Potassium 4.4 MMOL/L (3.5-5.1)
[2021-08-12 13:56] LABS: INR 1.3; PT Patient Result 14.4 SECS (10.5-12.0); Partial Thromboplastin Time 40.9 SECS (23.8-32.1)
[2021-08-12 13:58] LABS: Barbiturates Screen,Urine Negative (Negative); Benzodiazepines Screen,Urine Negative (Negative); Cannabinoid Screen,Urine Negative (Negative); Opiate Screen,Urine Positive (Negative); Phencyclidine Screen,Urine Negative (Negative)
[2021-08-12] MEDS ORDERED: ONDANSETRON 4 MG/2 ML VIAL IV PRN (15:27)
[2021-08-12] MEDS ORDERED: ACETAMINOPHEN 325 MG TABLET PO PRN (15:27)
[2021-08-12] MEDS ORDERED: hydrALAZINE 20 MG/1 ML VIAL IV PRN (15:27)
[2021-08-12] MEDS ORDERED: GLUCAGON 1 MG VIAL IM PRN (15:27)
[2021-08-12] MEDS ORDERED: POLYETHYLENE GLYCOL POWDER 17 GM PACK PO PRN (15:34)
[2021-08-12] MEDS ORDERED: ONDANSETRON 4 MG/2 ML VIAL IV STA (15:39)
[2021-08-12] MEDS ORDERED: HYDROmorphone 1 MG/1 ML SYRINGE IV STA (15:40)
[2021-08-12] MEDS ORDERED: DEXTROSE 10% 250 ML BAG IV PRN (15:40)
[2021-08-12] MEDS: SODIUM CHLORIDE 0.9% 1,000 ML IV SCH (15:45)
[2021-08-12 16:35] LABS: % Iron Saturation 18.8 % (18-50); Ferritin 4620.2 ng/mL (8-252)
[2021-08-12] MEDS: MORPHINE 2 MG/1 ML SYRINGE IV PRN (16:45)
[2021-08-12] MEDS: HYDROmorphone 2 MG TABLET PO PRN ×2 (17:51→22:56)
[2021-08-12] MEDS: METOPROLOL TARTRATE 25 MG TABLET PO SCH (20:51)
[2021-08-12] MEDS: PANTOPRAZOLE 40 MG TABLET PO SCH (20:51)
[2021-08-12] MEDS: INSULIN LISPRO 100 UNIT/ML SUBCUT SCH (21:59)
[2021-08-13] MEDS: SODIUM CHLORIDE 0.9% 1,000 ML IV SCH ×3 (02:51→20:40)
[2021-08-13] MEDS: INSULIN LISPRO 100 UNIT/ML SUBCUT SCH ×5 (02:52→20:53)
[2021-08-13 05:14] LABS: Basophils % 0.3 % (0.0-0.8); Eosinophils % 0.2 % (0.00-10.9); Hematocrit 27.9 VOL% (35.7-47.0); Hemoglobin 8.4 GM/DL (12.0-16.0); Immature Granulocytes % 1.2 %; Immature Granulocytes Absolute 0.13 #; Lymphocytes # 1.1 10*3/uL (1.4-4.0); Lymphocytes % 10.5 % (21.3-54.2); Mean Corpuscular HGB Conc 30.1 GM/DL (32-36); Mean Corpuscular Volume 86.6 FL (87-102); Mean Platelet Volume 10.9 FL (9.6-12.0); Neutrophils % 77.8 % (38.7-73.9); Platelet Count 319 T/CUMM (130-400); Red Blood Count 3.22 MC/CUMM (3.8-5.5); Red Cell Distribution Width 16.2 % (9.3-17.3); White Blood Count 10.9 T/CUMM (4-12)
[2021-08-13 05:37] LABS: Calcium 8.5 MG/DL (8.5-10.1); Potassium 4.3 MMOL/L (3.5-5.1); Thyroid Stimulating Hormone 2.78 uIU/ml (0.358-3.74)
[2021-08-13] MEDS: HYDROmorphone 2 MG TABLET PO PRN ×3 (07:37→20:32)
[2021-08-13] MEDS: PANTOPRAZOLE 40 MG TABLET PO SCH ×2 (08:49→20:31)
[2021-08-13] MEDS: METOPROLOL TARTRATE 25 MG TABLET PO SCH ×2 (08:49→20:31)
[2021-08-13] MEDS ORDERED: amLODIPine 5 MG TABLET PO SCH (09:00)
[2021-08-13] MEDS ORDERED: PANTOPRAZOLE 40 MG TABLET PO SCH (09:00)
[2021-08-13] MEDS: MORPHINE 2 MG/1 ML SYRINGE IV PRN (23:59)
[2021-08-14] MEDS: HYDROmorphone 2 MG TABLET PO PRN ×3 (03:42→21:13)
[2021-08-14 04:40] LABS: Basophils % 0.3 % (0.0-0.8); Eosinophils # 0.1 10*3/uL (0.0-0.87); Eosinophils % 0.7 % (0.00-10.9); Hemoglobin 7.3 GM/DL (12.0-16.0); Immature Granulocytes % 0.9 %; Immature Granulocytes Absolute 0.08 #; Lymphocytes # 1.4 10*3/uL (1.4-4.0); Lymphocytes % 14.9 % (21.3-54.2); Mean Corpuscular HGB Conc 29.2 GM/DL (32-36); Mean Corpuscular Volume 89.6 FL (87-102); Neutrophils % 73.2 % (38.7-73.9); Platelet Count 335 T/CUMM (130-400); Red Blood Count 2.79 MC/CUMM (3.8-5.5); Red Cell Distribution Width 16.5 % (9.3-17.3); White Blood Count 9.1 T/CUMM (4-12)
[2021-08-14 05:13] LABS: Osmolality,Calculated 285.4 MOS/KG (273-304); Potassium 3.8 MMOL/L (3.5-5.1)
[2021-08-14] MEDS: SODIUM CHLORIDE 0.9% 1,000 ML IV SCH ×2 (06:06→22:32)
[2021-08-14] MEDS: MORPHINE 2 MG/1 ML SYRINGE IV PRN ×2 (07:58→18:48)
[2021-08-14] MEDS: INSULIN LISPRO 100 UNIT/ML SUBCUT SCH ×4 (08:00→22:40)
[2021-08-14] MEDS ORDERED: SODIUM CHLORIDE 0.9% 1,000 ML IV PRN ×3 (08:19→21:57)
[2021-08-14] MEDS: LACTATED RINGERS 1,000 ML IV SCH ×2 (10:57→13:08)
[2021-08-14] MEDS ORDERED: LIDOCAINE 2% 5 ML VIAL ONE (13:18)
[2021-08-14] MEDS ORDERED: propofoL 200 MG/20 ML VIAL IV ONE (13:18)
[2021-08-14] MEDS: METOPROLOL TARTRATE 25 MG TABLET PO SCH ×2 (14:27→21:12)
[2021-08-14] MEDS: MULTIVITAMIN (CENTRUM) TABLET PO SCH (14:27)
[2021-08-14] MEDS: PANTOPRAZOLE 40 MG TABLET PO SCH ×2 (14:28→21:12)
[2021-08-14] MEDS: FLUCONAZOLE 100 MG TABLET PO SCH (14:30)
[2021-08-15] MEDS: HYDROmorphone 2 MG TABLET PO PRN ×2 (01:40→11:15)
[2021-08-15] MEDS: MORPHINE 2 MG/1 ML SYRINGE IV PRN ×2 (02:53→08:47)
[2021-08-15 05:50] LABS: Basophils # 0.1 10*3/uL (0.0-0.2); Basophils % 0.5 % (0.0-0.8); Eosinophils # 0.1 10*3/uL (0.0-0.87); Eosinophils % 0.5 % (0.00-10.9); Hematocrit 32.9 VOL% (35.7-47.0); Immature Granulocytes % 0.9 %; Lymphocytes # 1.6 10*3/uL (1.4-4.0); Lymphocytes % 14.8 % (21.3-54.2); Mean Corpuscular HGB Conc 30.4 GM/DL (32-36); Mean Corpuscular Volume 89.2 FL (87-102); Mean Platelet Volume 10.5 FL (9.6-12.0); Monocytes % 10.6 % (1.7-12.7); Neutrophils % 72.7 % (38.7-73.9); Platelet Count 348 T/CUMM (130-400); Red Blood Count 3.69 MC/CUMM (3.8-5.5); Red Cell Distribution Width 15.7 % (9.3-17.3); White Blood Count 10.8 T/CUMM (4-12)
[2021-08-15 06:04] LABS: Calcium 7.7 MG/DL (8.5-10.1); Osmolality,Calculated 283.1 MOS/KG (273-304); Potassium 4.1 MMOL/L (3.5-5.1)
[2021-08-15] MEDS: INSULIN LISPRO 100 UNIT/ML SUBCUT SCH ×2 (09:28→12:03)
[2021-08-15] MEDS: PANTOPRAZOLE 40 MG TABLET PO SCH (10:21)
[2021-08-15] MEDS: FLUCONAZOLE 100 MG TABLET PO SCH (10:21)
[2021-08-15] MEDS: METOPROLOL TARTRATE 25 MG TABLET PO SCH (10:21)
[2021-08-15] MEDS: MULTIVITAMIN (CENTRUM) TABLET PO SCH (10:21)
[2021-08-15] MEDS ORDERED: HEPARIN LOCK FLUSH 500 UNIT/5 ML SYRINGE IV ONE (13:00)
[2021-08-15 13:01] VITALS: BP 119/61
== END 2021-08-15 13:08 | disposition home health service (06) | DRG 242 ==
LOC: N.ED 12:12 → SUATTDRO 15:27 → N.EDINP 15:27 → N.TELES 20:21
PROVIDERS: ADMIT Internal Medicine; ATTEND Internal Medicine